=== PATIENT | male | born 1980 | race Caucasian/White ===

== ENCOUNTER 2018-02-11 23:25 | Emergency (ER) | payer MEDICAID ==
--- NOTE | 2018-02-12 00:49 | ED Physician Documentation ---
History of Present Illness - Stated complaint Stated Complaint: R LEG PX - Chief complaint Chief Complaint: Ext Problem - Additonal information Additional information: hx from pt 37 m RLE pain and swelling primarily medial posterior knee and calf a bit to lateral thigh started after twisted his knee no CP or SOA no trauma no redness or fever Review of Systems Constitutional: denies: Fever Cardiac: denies: Chest pain / pressure Respiratory: denies: Dyspnea Musculoskeletal: reports: Extremity pain, Extremity swelling Endocrine: denies: Easy bruising / bleeding Immunocompromised: denies: Immunocompromised PD PAST MEDICAL HISTORY - Past Medical History : Kidney stones - Past Surgical History Past Surgical History: No - Present Medications Home Medications: Ambulatory Orders Medication Instructions Recorded Confirmed Ibuprofen [Motrin] 400 mg PO Q6H PRN #20 tablet 02/12/18 - Allergies Allergies/Adverse Reactions: Allergies Allergy/AdvReac Type Severity Reaction Status Date / Time Penicillins Allergy Anaphylaxis Verified 02/11/18 23:33 - Social History Does the pt smoke?: No Smoking Status: Never smoker Does the pt drink ETOH?: No Does the pt have substance abuse?: No - Immunizations Immunizations are current?: Yes - POLST Patient has POLST: No PD ED PE NORMAL - Vitals Vital signs reviewed: Yes - General General: Alert and oriented X 3 - Cardiac Cardiac: RRR - Respiratory Respiratory: No respiratory distress, Clear bilaterally - Abdomen Abdomen: Non tender - Extremities Extremities: Other (mild edema, quite TTP medial posterior knee and upper medial calf, MSV intact, no redness or warmth., neg SLR, no clonus, knee s effusion laxity deformity) Results - Vitals Vitals: Vital Signs - 24 hr 02/11/18 02/12/18 02/12/18 23:25 02:28 03:20 Heart Rate 99 86 85 Respiratory 18 20 16 Rate Blood Pressure 136/84 H 134/79 H 130/96 H O2 Saturation 97 94 96 Oxygen O2 Source Room air - Rads (name of study) duplex Radiology: See rad report (no DVT) Departure - Departure Disposition: 01 Home, Self Care Clinical Impression: Pain in extremity Qualifiers: Extremity pain location: lower extremity Laterality: right Qualified Code(s): M79.604 - Pain in right leg Condition: Good Prescriptions: Ibuprofen [Motrin] 400 mg PO Q6H PRN #20 tablet PRN Reason: Pain Comments: The history does not suggest a bone injury The exam does not suggest and infection And the ultrasound does not show a blood clot. I think it is safe for you to go home for now. Recommend elevating your leg and taking motrin to decrease pain and swelling Follow up with your PMD for a recheck within a week. Return if worse Discharge Date/Time: 02/12/18 03:25
[2018-02-12] MEDS: IBUPROFEN 400 MG TABLET PO STA (01:07)
--- NOTE | 2018-02-12 02:53 | Ultrasound Report ---
Reason: rle pain and swelling Procedure Date: 02/12/2018 Accession Number: [id number] / [id number] Procedure: US - Duplex Ext Veins Right CPT Code: FULL RESULT: EXAM: RIGHT LOWER EXTREMITY VENOUS ULTRASOUND EXAM DATE: 02/12/2018 02:23 AM. CLINICAL HISTORY: Large lower extremity pain and swelling. COMPARISON: None. TECHNIQUE: Real-time sonographic vascular imaging was performed by the science editor through the lower extremity utilizing both color-flow and Doppler spectral analysis. Multiple inside outside sales representative static images were saved for review. FINDINGS: Common Femoral Vein (CFV): No evidence of thrombus. CFV-GSV Junction: No evidence of thrombus. Profunda Femoral Vein (PFV): No evidence of thrombus. Femoral Vein (FV) Prox: No evidence of thrombus. Femoral Vein (FV) Mid: No evidence of thrombus. Femoral Vein (FV) Dist: No evidence of thrombus. Popliteal Vein: No evidence of thrombus. Calf Veins: Suboptimally visualized. Other: Edema noted at the calf level. IMPRESSION: No evidence for deep venous thrombosis. RADIA
[2018-02-12 03:25] VITALS: BP 130/96
== END 2018-02-12 03:25 | disposition home or self-care (01) ==
LOC: ED 23:25
DX: M79.662 Pain in left lower leg (principal)
CPT/HCPCS: 99282; 99283

== ENCOUNTER 2018-03-24 22:42 | Inpatient (IN) | payer MEDICAID ==
[2018-03-24 23:18] LABS: BASOPHILS # (AUTO) 0.1 10^3/uL (0.0-0.1); BASOPHILS % (AUTO) 0.6 %; EOSINOPHILS # (AUTO) 0.3 10^3/uL (0.0-0.7); EOSINOPHILS % (AUTO) 1.8 %; HGB - HEMOGLOBIN 17.4 g/dL (14.0-18.0); LYMPHOCYTES # (AUTO) 1.3 10^3/uL (1.5-3.5); LYMPHOCYTES % (AUTO) 8.4 %; MEAN CORPUSCULAR HGB CONC 33.2 g/dL (32.0-36.0); MEAN CORPUSCULAR VOLUME 87.4 fL (80.0-94.0); MONOCYTES # (AUTO) 1.3 10^3/uL (0.0-1.0); MONOCYTES % (AUTO) 8.5 %; NEUTROPHILS # (AUTO) 12.6 10^3/uL (1.5-6.6); NEUTROPHILS % (AUTO) 80.7 %; PLT - PLATELET COUNT 327 10^3/uL (130-450); RED BLOOD COUNT 6.01 10^6/uL (4.70-6.10); RED CELL DISTRIBUTION WIDTH 13.7 % (12.0-15.0); WHITE BLOOD COUNT 15.7 x10^3/uL (4.8-10.8)
[2018-03-24 23:19] LABS: BILIRUBIN,URINE NEGATIVE (NEGATIVE); GLUCOSE, URINE (UA) NEGATIVE (NEGATIVE); KETONES,URINE (UA) NEGATIVE (NEGATIVE); LEUKOCYTE ESTERASE, URINE NEGATIVE (NEGATIVE); NITRITE,URINE NEGATIVE (NEGATIVE); OCCULT BLOOD,URINE NEGATIVE (NEGATIVE); PH,URINE 5.5 PH (5.0-7.5); PROTEIN,URINE 100 mg/dL (NEGATIVE); UROBILINOGEN,URINE 0.2 (NORMAL) E.U./dL (NORMAL)
[2018-03-24 23:20] LABS: CLARITY,URINE CLEAR (CLEAR)
--- NOTE | 2018-03-24 23:28 | ED Physician Documentation ---
PD HPI NVD - Stated complaint Stated Complaint: N/V/D/ABD PX - Chief complaint Chief Complaint: Abd Pain - History obtained from History obtained from: Patient - History of Present Illness Timing - onset: How many hours ago (12), Today (10 am) Timing - duration: Hours (12) Timing - details: Abrupt onset, Still present, Waxing and waning Associated symptoms: Abdominal pain (general cramping), Loss of appetite, Other (repetitive vomiting and diarrhea through the day. Persistent nausea.). No: Fever Contributing factors: No: Sick contact, Bad food, Recent antibiotics Similar symptoms before: Has not had sx before Review of Systems Constitutional: reports: Myalgias. denies: Fever, Chills Nose: denies: Rhinorrhea / runny nose, Congestion Throat: denies: Sore throat Cardiac: denies: Chest pain / pressure Respiratory: denies: Dyspnea, Cough GI: reports: Abdominal Swelling (this evening), Nausea, Vomiting, Diarrhea. denies: Hematemesis, Bloody / black stool : denies: Dysuria, Hematuria Skin: denies: Rash, Lesions Musculoskeletal: denies: Back pain Neurologic: reports: Generalized weakness. denies: Near syncope, Altered mental status, Headache Immunocompromised: denies: Immunocompromised PD PAST MEDICAL HISTORY - Past Medical History Past Medical History: Yes Cardiovascular: None Respiratory: None Neuro: None Endocrine/Autoimmune: None : Kidney stones - Past Surgical History Past Surgical History: No - Present Medications Home Medications: Ambulatory Orders Medication Instructions Recorded Confirmed No Known Home Medications 03/24/18 03/24/18 - Allergies Allergies/Adverse Reactions: Allergies Allergy/AdvReac Type Severity Reaction Status Date / Time Penicillins Allergy Anaphylaxis Verified 03/24/18 22:50 - Social History Does the pt smoke?: No Smoking Status: Never smoker Does the pt drink ETOH?: No Does the pt have substance abuse?: No - Immunizations Immunizations are current?: Yes - POLST Patient has POLST: No PD ED PE NORMAL - Vitals Vital signs reviewed: Yes - General General: Alert and oriented X 3 - HEENT HEENT: Pharynx benign. No: Moist mucous membranes - Neck Neck: Supple, no meningeal sign - Cardiac Cardiac: No murmur. No: RRR (tachy but regular) - Respiratory Respiratory: Clear bilaterally - Abdomen Abdomen: Soft, No organomegaly, Other (distended generally without percussion tenderness. General mild tenderness without guarding. Bowel sounds diminished to absent. ) - Male Male : Deferred - Rectal Rectal: Deferred - Back Back: No CVA TTP - Derm Derm: Normal color, Warm and dry - Extremities Extremities: No deformity, Normal ROM s pain, No edema - Neuro Neuro: Alert and oriented X 3, No motor deficit, Normal speech - Psych Psych: Normal mood, Normal affect Results - Vitals Vitals: Vital Signs - 24 hr 03/24/18 22:45 Temperature 37.0 C Heart Rate 132 H Respiratory 24 Rate Blood Pressure 138/95 H O2 Saturation 96 Oxygen O2 Source Room air - Labs Labs: Laboratory Tests 03/24/18 03/24/18 03/24/18 22:58 23:08 23:08 WBC 15.7 H RBC 6.01 Hgb 17.4 Hct 52.5 H MCV 87.4 MCH 29.0 MCHC 33.2 RDW 13.7 Plt Count 327 MPV 9.0 Neut # (Auto) 12.6 H Lymph # (Auto) 1.3 L [place] # (Auto) 1.3 H Eos # (Auto) 0.3 Baso # (Auto) 0.1 Absolute Nucleated RBC 0.05 Nucleated RBC % 0.3 Sodium 135 Potassium 3.6 Chloride 97 L Carbon Dioxide 25 Anion Gap 13.0 BUN 17 Creatinine 0.9 Estimated GFR (MDRD) 96 Glucose 174 H Calcium 9.5 Total Bilirubin 1.0 AST 49 H ALT 67 H Alkaline Phosphatase 64 Total Protein 8.6 H Albumin 4.8 Globulin 3.8 Albumin/Globulin Ratio 1.3 Lipase 24 Urine Color YELLOW Urine Clarity CLEAR Urine pH 5.5 Ur Specific [place] >=1.030 H Urine Protein 100 H Urine Glucose (UA) NEGATIVE Urine Ketones NEGATIVE Urine Occult Blood NEGATIVE Urine Nitrite NEGATIVE Urine Bilirubin NEGATIVE Urine Urobilinogen 0.2 (NORMAL) Ur Leukocyte Esterase NEGATIVE Urine RBC 0-5 Urine WBC 4-5 Ur Squamous Epith Cells NONE SEEN Urine Bacteria None Seen Ur Microscopic Review INDICATED Urine Culture Comments NOT INDICATED - Rads (name of study) abd CT Radiology: Prelim report reviewed (large left proximal urteral stone with hydronephrosis. dilated bowel with obstruction pattern. ) PD MEDICAL DECISION MAKING - ED course Complexity details: reviewed results (He does have an elevated white count. His CT scan shows a proximal left ureteral stone that is quite large with some hydronephrosis. We will try to find prior imaging for comparison. There is a reading of cysts dilated loops of bowel with bowel obstruction pattern. Clinically however the patient has had vomiting and diarrhea with distention and decreased bowel sounds and I think it acts more like an ileus.), re-evaluated patient (less nauseated but still distended. nauseated. Bowel sounds decreased. ), considered differential, d/w patient, d/w quality improvement consultant (I talked with our hospitalist with the primary symptoms being that of nausea vomiting and diarrhea with the distention. However there was concern for the hydronephrosis and stone. I was able to talk with surgery down in [facility] where the patient has had prior urology procedures. They compared to a CT report from 11/29/2015 that also showed the large proximal ureteral stone with some hydronephrosis of the kidney and therefore seems to be a chronic condition. This would negate the need for urgent urology evaluation and we should be able to care for the patient here at our facility.) Departure - Departure Disposition: ED Place in Observation Clinical Impression: Nausea vomiting and diarrhea, Ileus, unspecified, Abdominal distension, Kidney stone on left side Condition: Stable Record reviewed to determine appropriate education?: Yes
[2018-03-24 23:31] LABS: BACTERIA,URINE None Seen /HPF (None Seen); RBC,URINE 0-5 /HPF (0-5); SQUAMOUS EPITHELIAL CELL,UR NONE SEEN (<= Few)
[2018-03-24 23:31] LABS: ALBUMIN 4.8 g/dL (3.2-5.5); ALBUMIN/GLOBULIN RATIO 1.3 (1.0-2.2); CALCIUM 9.5 mg/dL (8.5-10.3); CREATININE 0.9 mg/dL (0.6-1.2); TOTAL PROTEIN 8.6 g/dL (6.7-8.2)
[2018-03-24] MEDS ORDERED: ONDANSETRON 4 MG/2 ML VIAL IVP STA (23:36)
[2018-03-24] MEDS ORDERED: SODIUM CHLORIDE 0.9% 1,000 ML IV ONE ×2 (23:36→23:37)
[2018-03-24] MEDS ORDERED: DIPHENOX/ATROPINE 2.5/0.025 MG TABLET PO STA (23:37)
[2018-03-24] MEDS ORDERED: KETOROLAC 30 MG/ML VIAL IVP STA (23:37)
[2018-03-25] MEDS ORDERED: PROMETHAZINE INJ 12.5 MG in SODIUM CHLORIDE 0.9% 50 ML IV STA (00:53)
[2018-03-25] MEDS ORDERED: SODIUM CHLORIDE 0.9% 1,000 ML IV ONE (01:18)
[2018-03-25] MEDS ORDERED: MORPHINE 2 MG/ML CARPUJECT IVP STA ×2 (01:19→04:39)
[2018-03-25] MEDS ORDERED: MORPHINE 2 MG/ML CARPUJECT ONE (01:30)
[2018-03-25] MEDS ORDERED: IOVERSOL 320 100 ML VIAL IVP ONE ×2 (01:50→02:17)
--- NOTE | 2018-03-25 02:45 | CT Report ---
Reason: abd pain, vomiting/diarrhea Procedure Date: 03/25/2018 Accession Number: [id number] / [id number] Procedure: CT - Abdomen/Pelvis W/ CPT Code: FULL RESULT: EXAM: CT ABDOMEN AND PELVIS EXAM DATE: 03/25/2018 02:16 AM. CLINICAL HISTORY: Abdominal pain, vomiting, diarrhea. COMPARISONS: None. TECHNIQUE: Routine helical CT imaging was performed through the abdomen and pelvis. IV contrast: 100 mL Optiray 320. Enteric contrast: No. Reconstructions: Coronal and sagittal. In accordance with CT protocol optimization, one or more of the following dose reduction techniques were utilized for this exam: automated exposure control, adjustment of mA and/or KV based on patient size, or use of iterative reconstructive technique. FINDINGS: ABDOMEN: Liver: Severe hepatic steatosis noted. Stomach/Distal Esophagus: No significant abnormality. Gallbladder: Sludge and/or stones are suspected. Bile Ducts: No significant abnormality. Pancreas: No significant abnormality. Spleen: No significant abnormality. Kidneys: Severe left-sided hydroureteronephrosis noted, due to a proximal left ureteral stone measuring 1.4 x 2.0 x 1.8 cm (image 55 series 3). Stone measures 953 HU in density. There is a posterolaterally located left mid to upper kidney stone measuring 6 mm. Punctate right lower kidney stone. Cluster of stones within a medially located right mid to upper lung calyx noted. These measure up to 6 mm as well. No right-sided hydroureteronephrosis. Multiple renal parenchymal low-density lesions are noted, with appearance suggestive of cysts. Some of the smaller lesions are difficult to fully characterize on this exam. Adrenals: No significant abnormality. Bowel: Multiple fluid filled moderately dilated proximal small bowel loops are noted, with a transition in the right upper quadrant, probably within the mid ileum (image 49 series 3). Maximal small bowel distention is that of the proximal jejunum, measuring up to 5.4 cm (image 49 series 3). Appendix: Small caliber appendix, normal. Lymph Nodes: No pathologically enlarged nodes. Vasculature: Normal caliber aorta. Fluid: No significant free fluid. Abdominal Wall: No significant abnormality. Other: No significant abnormality. PELVIS: Prostate and Seminal Vesicles: No significant abnormality. Bladder: No significant abnormality. Lymph Nodes: No pathologically enlarged nodes. Fluid: No significant free fluid. Other: None. BONES: No suspicious bony lesions. LOWER CHEST: No significant consolidation or effusion. Multiple borderline as well as mild enlarged periaortic posterior mediastinal lymph nodes are noted. These are nonspecific and difficult to fully characterize. IMPRESSION: 1. Findings of small bowel obstruction with a transition in the right upper quadrant, probably within the mid ileum. 2. Maximal small bowel diameter measures up to 5.4 mm. No definite evidence of intra-abdominal free gas seen at this time. 3. Bilateral intrarenal kidney stones measuring up to 6 mm (2 on the right and one on the left). There is severe left hydroureteronephrosis due to an obstructing large left proximal ureteral stone which measures 1.4 x 2.0 x 1.8 cm. The stone is 953 HU in density. 4. Suspect gallbladder sludge and/or stones. RADIA
[2018-03-25] MEDS ORDERED: PROMETHAZINE 25 MG/1 ML VIAL IM PRN (05:05)
[2018-03-25] MEDS ORDERED: PROCHLORPERAZINE 10 MG/2 ML VIAL IVP PRN (05:05)
[2018-03-25] MEDS ORDERED: ONDANSETRON 4 MG/2 ML VIAL IVP PRN (05:05)
[2018-03-25] MEDS ORDERED: ACETAMINOPHEN 325 MG TABLET PO PRN (05:05)
[2018-03-25] MEDS: SODIUM CHLORIDE FLUSH 0.9% 10 ML SYRINGE IVP PRN (06:35)
[2018-03-25] MEDS: SODIUM CHLORIDE 0.9% 1,000 ML IV SCH ×2 (06:35→15:48)
[2018-03-25] MEDS: PANTOPRAZOLE 40 MG TABLET PO SCH ×2 (06:36→17:14)
--- NOTE | 2018-03-25 06:57 | HISTORY & PHYSICAL EXAMINATION ---
Chief Complaint - Chief Complaint Chief Complaint: Abdominal pain with nausea and vomiting and diarrhea History of Present Illness - Admitted From Admitted From:: Emergency apartment - History Obtained From Records Reviewed: Emergency department records as well as 2016 CT scan report from [facility] History obtained from: Patient, Dr. Alexandre, medical records Exam Limitations: None - History of Present Illness HPI Comment/Other: Patient is a 37-year old Male With a past medical history significant only for kidney stones as far as the patient knows, who presents to the emergency department with upset stomach, nausea, vomiting, diarrhea, and abdominal pain that started when he was woken up for [place] at approximately 10 AM on March 24. Patient states that he immediately felt nauseous, went to the bathroom and had 2 large episodes of emesis followed by several episodes of diarrhea and further episodes of emesis throughout the day. Overall he estimates he had about 5 episodes of emesis throughout the day including after presenting to the ED when he had to, as well as about 5-8 episodes of watery diarrhea. He does not describe any blood in either emesis or stool, and describes green colored stool with some yellow clear emesis products. Patient denies any previous antecedent syndrome with fever, nausea, vomiting, chills, change in diet, recent travel, or known sick contacts. He does however admit that he has had multiple family members over for the holiday and does not know if any of them had been sick without his being aware. Patient presented to the emergency room for evaluation and in the ED received 1 dose of Zofran and 1 dose of Phenergan and after repeated attempts to take p.o. fluids, he continued to complain of abdominal discomfort and bloating with even water so the ED physician ordered a CT scan of his abdomen and pelvis. The CT scan was read as a possible small bowel obstruction though Dr. Alexandre felt this was a presentation more consistent with ileus, and it also showed an incidental left kidney stone in the ureter. This is fairly large and measures 2 cm in the largest diameter causing severe hydronephrosis. Initially because of this finding after I was called to admit the patient, I requested input from urology as this might be something that requires surgical intervention during this hospital stay but since it has been chronic I thought this could be confirmed with previous imaging studies. Dr. Alexandre was able to obtain a previous CT scan from 2016 showing the same stone and did talk to the urologist on-call at the [facility] who had reviewed the images stating that this is chronic and does not need to be addressed during this hospital stay as long as he is not symptomatic with flank pain, or other symptoms of urological concern. History - Past Medical History Cardiovascular: reports: None Respiratory: reports: None Neuro: reports: None Endocrine/Autoimmune: reports: None GI: reports: None : reports: None, Kidney stones HEENT: reports: None Psych: reports: None Musculoskeletal: reports: None Derm: reports: None MRSA Hx?: No - POLST Patient has POLST: No Meds/Allgy - Home Medications Home Medications: Ambulatory Orders Medication Instructions Recorded Confirmed No Known Home Medications 03/24/18 03/24/18 - Allergies Allergies/Adverse Reactions: Allergies Allergy/AdvReac Type Severity Reaction Status Date / Time Penicillins Allergy Anaphylaxis Verified 03/24/18 22:50 Review of Systems - Constitutional Constitutional: reports: Poor appetite. denies: Fever, Chills, Weakness - Gastrointestinal Gastrointestinal: reports: Abdominal pain, Abdominal distention, Diarrhea, Change in bowel habits, Nausea, Vomiting, [place] blood emesis. denies: Constipation, Rectal bleeding, Black stools, Bloody stools, Bile emesis, Coffee grounds emesis, Reflux/heartburn, Bloating - Genitourinary Genitourinary: denies: Dysuria, Frequency, Urgency, Hematuria, Incontinence - All Other Systems All Other Systems: reports: Reviewed and negative Prior Level of Functionality: Independent Exam - Vital Signs Reviewed Vital Signs: Yes Vital Signs: Vital Signs x48h Temp Pulse Pulse Resp BP BP Pulse Ox 03/25/18 06:35 36.8 C 105 H 20 132/90 H 03/25/18 04:48 96 148/85 H 88 L - Physical Exam General Appearance: positive: No acute distress Eyes Bilateral: positive: Normal inspection ENT: positive: ENT inspection nml Neck: positive: Nml inspection Respiratory: positive: Chest non-tender, No respiratory distress, Breath sounds nml Cardiovascular: positive: Regular rate & rhythm, No murmur, No gallop Peripheral Pulses: positive: 2+ Abdomen: positive: No organomegaly, Tenderness, Abnml bowel sounds (Hypoactive bowel sounds, tenderness most prominent at the left upper quadrant and epiga stric region. Distended.). negative: Guarding, Rebound, Hepatomegaly, Splenomegaly, Mass Skin: positive: Color nml Extremities: positive: Non-tender, Nml appearance, No pedal edema Neurologic/Psychiatric: positive: Oriented x3, CN's nml (2-12), Motor nml, Sensation nml, Mood/affect nml Conclusion/Plan - Problem List (1) Ileus, unspecified Conclusion/Plan: It is unclear if this is true small bowel obstruction given the fluid levels seen with dilated bowel loops versus ileus. In either case, management will start the same with patient being kept on clear liquids as long as he can tolerate this otherwise will be reversed to n.p.o. If bowel sounds improve and patient is able to tolerate liquids, could potentially consider advancing the diet slowly otherwise may need to have a nasogastric suction and possible surgical consultation if there is no improvement. In the meantime, will order and follow-up results on stool studies given the diarrhea as this may be presenting as part of a infectious diarrhea or viral gastroenteritis.Also, antiemetics will be provided and patient will be given IV fluids. Also, the patient states he does not have any known medical history but he had a glucose of 174 presumably after not eating for several hours so I will add labs to screen the patient for diabetes as this could certainly be the underlying etiology for ileus. (2) Hydronephrosis due to obstruction of ureter Conclusion/Plan: This is apparently a chronic problem as Dr. Livingston of the [facility] had been contacted by the ED physician who reviewed the CT scan performed in our facility Earlier today as well as the CT scan from previous admission in 2016. There is no significant change in the stone or hydronephrosis and Dr. Livingston felt that this does not need to be addressed urgently but should follow-up with urology outpatient. (3) Abdominal distension Conclusion/Plan: Patient does have steatosis on CT scan notes unlikely if this is related. Will follow-up labs and clinical course with plan as above. (4) Kidney stone on left side Conclusion/Plan: As stated above, this is a previously known kidney stone that is not presenting with acute symptoms despite the impressive amount of hydronephrosis on the CT scan. There is certainly possible with his nausea vomiting and a whether this is related, without flank pain it seems less likely so we will continue monitoring for this and recommend outpatient further workup (5) Nausea vomiting and diarrhea Conclusion/Plan: As above, IV fluids, clear liquids versus n.p.o., pain control, possible surgical consult and nasogastric tube with suction if symptoms worsen or fail to improve. (6) Obesity Conclusion/Plan: We will screen the patient for diabetes Qualifiers: Obesity type: due to excess calories Obesity classification: adult class 3 (BMI >= 40) - Lab Results Lab results reviewed: Yes Darius Bones: 03/24/18 23:08 03/24/18 23:08 - Diagnostic Imaging Results Diagnostic Imaging Results: positive: Final report reviewed, Read independently Core Measures - Anticipated LOS I expect patient to be DC'd or transferred within 96 hours.: Yes - DVT/VTE - Prophylaxis VTE/DVT Device ordered at admit?: Yes
[2018-03-25 08:19] LABS: CHOL/HDL RATIO 3.5 (<5.0); CHOLESTEROL 159 mg/dL; HDL CHOLESTEROL 45 mg/dL; LDL CHOLESTEROL,CALCULATED 97 mg/dL; LDL/HDL RATIO 2.2 (<3.6); VLDL CHOLESTEROL 17 mg/dL
[2018-03-25 08:21] LABS: HB2 TOTAL 17.6 g/dL; HEMOGLOBIN A1C 0.9 g/dL; HEMOGLOBIN A1C % 6.8 % (4.6-6.2)
--- NOTE | 2018-03-25 08:47 | XRAY Report ---
Reason: sob Procedure Date: 03/25/2018 Accession Number: [id number] / [id number] Procedure: XR - Chest 1 View X-Ray CPT Code: 24077 FULL RESULT: EXAM: CHEST RADIOGRAPHY EXAM DATE: 03/25/2018 08:36 AM. CLINICAL HISTORY: Shortness of breath. COMPARISON: None. TECHNIQUE: 1 view. FINDINGS: Lungs/Pleura: No focal opacities evident. No pleural effusion. No pneumothorax. Subjectively, lung volumes are relatively low. Mediastinum: Within exam limitations, the cardiomediastinal contour is normal. Other: None. IMPRESSION: Relatively low lung volumes in otherwise unremarkable radiograph. RADIA
[2018-03-25 08:48] LABS: BASOPHILS % (AUTO) 0.3 %; EOSINOPHILS % (AUTO) 0.3 %; HGB - HEMOGLOBIN 15.9 g/dL (14.0-18.0); LYMPHOCYTES % (AUTO) 6.6 %; MEAN CORPUSCULAR HEMOGLOBIN 29.1 pg (27.0-31.0); MEAN CORPUSCULAR HGB CONC 33.2 g/dL (32.0-36.0); MEAN CORPUSCULAR VOLUME 87.4 fL (80.0-94.0); MEAN PLATELET VOLUME 9.4 fL (7.4-11.4); MONOCYTES # (AUTO) 1.3 10^3/uL (0.0-1.0); MONOCYTES % (AUTO) 8.3 %; NEUTROPHILS # (AUTO) 12.9 10^3/uL (1.5-6.6); NEUTROPHILS % (AUTO) 84.5 %; PLT - PLATELET COUNT 305 10^3/uL (130-450); RED BLOOD COUNT 5.46 10^6/uL (4.70-6.10); RED CELL DISTRIBUTION WIDTH 13.9 % (12.0-15.0); WHITE BLOOD COUNT 15.2 x10^3/uL (4.8-10.8)
[2018-03-25 08:57] LABS: ALBUMIN 3.8 g/dL (3.2-5.5); ALKALINE PHOSPHATASE 54 IU/L (42-121); ALT ALANINE AMINOTRANSFERASE 57 IU/L (10-60); AST ASPARTATE AMINOTRANSFERASE 35 IU/L (10-42); BILIRUBIN,TOTAL 0.6 mg/dL (0.2-1.0); BUN - BLOOD UREA NITROGEN 19 mg/dL (6-20); CALCIUM 8.8 mg/dL (8.5-10.3); CARBON DIOXIDE - CO2 25 mmol/L (21-32); CHLORIDE 101 mmol/L (101-111); CREATININE 0.8 mg/dL (0.6-1.2); GFR - MDRD 110 (>89); GLUCOSE 185 mg/dL (70-100); MAGNESIUM 1.7 mg/dL (1.7-2.8); SODIUM 137 mmol/L (135-145); TOTAL PROTEIN 7.5 g/dL (6.7-8.2)
[2018-03-25] MEDS: POLYETHYLENE GLYCOL 3350 17 GM PACKET PO SCH (09:23)
[2018-03-25] MEDS: SODIUM CHLORIDE FLUSH 0.9% 10 ML SYRINGE IVP SCH ×2 (09:24→15:49)
--- NOTE | 2018-03-25 10:36 | PROVIDER PROGRESS NOTE ---
Subjective - Prog Note Date Prog Note Date: 03/25/18 - Subjective Pt reports feeling: No change Subjective: pt still complain of N/V, also he has diarrhea today morning. pt report he had diarrhea for many times recently. His sample is sent for C.Diff. He denies chest pain, fever, chill, SOB Current Medications - Current Medications Current Medications: Active Medications Acetaminophen (Tylenol) 650 mg PO Q4HR PRN PRN Reason: Pain 1 to 4 Sodium Chloride (Normal Saline 0.9%) 1,000 mls @ 100 mls/hr IV .Q10H [facility] Last Admin: 03/25/18 06:35 Dose: 100 mls/hr Morphine Sulfate (Morphine (Carpuject)) 2 mg IVP Q2HR PRN PRN Reason: Pain 8 to 10 Ondansetron HCl (Zofran Inj) 4 mg IVP Q6HR PRN PRN Reason: Nausea / Vomiting Pantoprazole Sodium (Protonix) 40 mg PO BIDAC [facility] Last Admin: 03/25/18 06:36 Dose: 40 mg Polyethylene Glycol (Miralax) 17 gm PO DAILY [facility] Last Admin: 03/25/18 09:23 Dose: Not Given Prochlorperazine Edisylate (Compazine Inj) 10 mg IVP Q6HR PRN PRN Reason: Nausea / Vomiting Promethazine HCl (Phenergan Inj) 25 mg IM Q6HR PRN PRN Reason: Nausea / Vomiting Simethicone (Mylicon) 80 mg PO 0900,1300,1800,2100 [facility] Sodium Chloride (Normal Saline Flush 0.9%) 10 ml IVP PRN PRN PRN Reason: NEEDED PER PROVIDER ORDERS Last Admin: 03/25/18 06:35 Dose: 10 ml Sodium Chloride (Normal Saline Flush 0.9%) 10 ml IVP 0100,0900,1700 [facility] Last Admin: 03/25/18 09:24 Dose: Not Given No Known Home Medications 03/24/18 Objective - Vital Signs/Intake & Output Reviewed Vital Signs: Yes Vital Signs: Vital Signs x48h Temp Pulse Pulse Resp BP BP Pulse Ox 03/25/18 07:34 36.7 C 95 18 125/79 92 03/25/18 06:35 36.8 C 105 H 20 132/90 H 03/25/18 04:48 96 148/85 H 88 L Intake & Output: Intake & Output 03/22/18 03/23/18 03/24/18 03/25/18 23:59 23:59 23:59 23:59 Intake Total 3050.5 Output Total 300 Balance 2750.5 - Objective General Appearance: positive: No acute distress, Alert. negative: Lethargic Eyes Bilateral: positive: Normal inspection, PERRL. negative: No lid inflammation, Conjunctivae nml ENT: positive: ENT inspection nml, Pharynx nml, No signs of dehydration. negative: Purulent nasal drainage, Pharyngeal erythema, Oral lesions, Dry mucous membranes Neck: positive: Nml inspection, Thyroid nml, No JVD, Trachea midline. negative: Thyromegaly, Lymphadenopathy (R), Lymphadenopathy (L), Stiff neck, Swelling/bruising, Tracheal deviation Respiratory: positive: Chest non-tender, No respiratory distress, Breath sounds nml. negative: Wheezes, Rales, Rhonchi Cardiovascular: positive: Regular rate & rhythm, No murmur, No gallop, Irregularly irregular. negative: Extrasystoles, Tachycardia, Bradycardia, JVD present, Systolic murmur, Diastolic murmur Peripheral Pulses: 2+ Radial (R), 2+ Radial (L), 2+ Dorsalis pedis (R), 2+ Dorsalis pedis (L) Abdomen: positive: Non-tender, No organomegaly, Nml bowel sounds, No distention. negative: Tenderness, Guarding, Rebound Back: positive: Nml inspection. negative: CVA tenderness (R), CVA tenderness (L) Skin: positive: Color nml, No rash, Warm, Dry. negative: Cyanosis, Diaphoresis, Pallor Extremities: positive: Non-tender, Full ROM, Nml appearance. negative: Calf tenderness, Joint swelling, Pk's sign/cords Neurologic/Psychiatric: positive: Oriented x3, Motor nml, Sensation nml, Mood/affect nml. negative: Weakness, Sensory loss, Facial droop, Slurred/abnml speech, Depressed mood/affect - Lab Results Fish Bones: 03/25/18 07:05 03/25/18 07:05 Other Labs: Lab Results x24hrs 03/25/18 03/25/18 03/25/18 Range/Units 07:05 07:05 07:05 WBC 15.2 H (4.8-10.8) x10^3/uL RBC 5.46 (4.70-6.10) 10^6/uL Hgb 15.9 (14.0-18.0) g/dL Hct 47.7 (42.0-52.0) % MCV 87.4 (80.0-94.0) fL MCH 29.1 (27.0-31.0) pg MCHC 33.2 (32.0-36.0) g/dL RDW 13.9 (12.0-15.0) % Plt Count 305 (130-450) 10^3/uL MPV 9.4 (7.4-11.4) fL Neut # (Auto) 12.9 H (1.5-6.6) 10^3/uL Lymph # (Auto) 1.0 L (1.5-3.5) 10^3/uL [place] # (Auto) 1.3 H (0.0-1.0) 10^3/uL Eos # (Auto) 0.0 (0.0-0.7) 10^3/uL Baso # (Auto) 0.0 (0.0-0.1) 10^3/uL Absolute Nucleated RBC 0.01 x10^3/uL Nucleated RBC % 0.1 /100WBC Sodium 137 (135-145) mmol/L Potassium 3.8 (3.5-5.0) mmol/L Chloride 101 (101-111) mmol/L Carbon Dioxide 25 (21-32) mmol/L Anion Gap 11.0 (6-13) BUN 19 (6-20) mg/dL Creatinine 0.8 (0.6-1.2) mg/dL Estimated GFR (MDRD) 110 (>89) Glucose 185 H (70-100) mg/dL Glycated Hemoglobin 6.8 H (4.6-6.2) % Estim Average Glucose 148 H (70-100) Calcium 8.8 (8.5-10.3) mg/dL Magnesium 1.7 (1.7-2.8) mg/dL Total Bilirubin 0.6 (0.2-1.0) mg/dL AST 35 (10-42) IU/L ALT 57 (10-60) IU/L Alkaline Phosphatase 54 (42-121) IU/L Total Protein 7.5 (6.7-8.2) g/dL Albumin 3.8 (3.2-5.5) g/dL Globulin 3.7 (2.1-4.2) g/dL Albumin/Globulin Ratio 1.0 (1.0-2.2) Triglycerides 85 ( - 149) mg/dL Cholesterol 159 ( - 199) mg/dL LDL Cholesterol, Calc 97 ( - 129) mg/dL VLDL Cholesterol 17 mg/dL HDL Cholesterol 45 L (60 - ) mg/dL LDL/HDL Ratio 2.2 (<3.6) Cholesterol/HDL Ratio 3.5 (<5.0) Lipase (22-51) U/L Urine Color Urine Clarity (CLEAR) Urine pH (5.0-7.5) PH Ur Specific [place] (1.002-1.030) Urine Protein (NEGATIVE) mg/dL Urine Glucose (UA) (NEGATIVE) mg/dL Urine Ketones (NEGATIVE) mg/dL Urine Occult Blood (NEGATIVE) Urine Nitrite (NEGATIVE) Urine Bilirubin (NEGATIVE) Urine Urobilinogen (NORMAL) E.U./dL Ur Leukocyte Esterase (NEGATIVE) Urine RBC (0-5) /HPF Urine WBC (0-3) /HPF Ur Squamous Epith Cells (<= Few) Urine Bacteria (None Seen) /HPF Ur Microscopic Review Urine Culture Comments 03/24/18 03/24/18 03/24/18 Range/Units 23:08 23:08 22:58 WBC 15.7 H (4.8-10.8) x10^3/uL RBC 6.01 (4.70-6.10) 10^6/uL Hgb 17.4 (14.0-18.0) g/dL Hct 52.5 H (42.0-52.0) % MCV 87.4 (80.0-94.0) fL MCH 29.0 (27.0-31.0) pg MCHC 33.2 (32.0-36.0) g/dL RDW 13.7 (12.0-15.0) % Plt Count 327 (130-450) 10^3/uL MPV 9.0 (7.4-11.4) fL Neut # (Auto) 12.6 H (1.5-6.6) 10^3/uL Lymph # (Auto) 1.3 L (1.5-3.5) 10^3/uL [place] # (Auto) 1.3 H (0.0-1.0) 10^3/uL Eos # (Auto) 0.3 (0.0-0.7) 10^3/uL Baso # (Auto) 0.1 (0.0-0.1) 10^3/uL Absolute Nucleated RBC 0.05 x10^3/uL Nucleated RBC % 0.3 /100WBC Sodium 135 (135-145) mmol/L Potassium 3.6 (3.5-5.0) mmol/L Chloride 97 L (101-111) mmol/L Carbon Dioxide 25 (21-32) mmol/L Anion Gap 13.0 (6-13) BUN 17 (6-20) mg/dL Creatinine 0.9 (0.6-1.2) mg/dL Estimated GFR (MDRD) 96 (>89) Glucose 174 H (70-100) mg/dL Glycated Hemoglobin (4.6-6.2) % Estim Average Glucose (70-100) Calcium 9.5 (8.5-10.3) mg/dL Magnesium (1.7-2.8) mg/dL Total Bilirubin 1.0 (0.2-1.0) mg/dL AST 49 H (10-42) IU/L ALT 67 H (10-60) IU/L Alkaline Phosphatase 64 (42-121) IU/L Total Protein 8.6 H (6.7-8.2) g/dL Albumin 4.8 (3.2-5.5) g/dL Globulin 3.8 (2.1-4.2) g/dL Albumin/Globulin Ratio 1.3 (1.0-2.2) Triglycerides ( - 149) mg/dL Cholesterol ( - 199) mg/dL LDL Cholesterol, Calc ( - 129) mg/dL VLDL Cholesterol mg/dL HDL Cholesterol (60 - ) mg/dL LDL/HDL Ratio (<3.6) Cholesterol/HDL Ratio (<5.0) Lipase 24 (22-51) U/L Urine Color YELLOW Urine Clarity CLEAR (CLEAR) Urine pH 5.5 (5.0-7.5) PH Ur Specific [place] >=1.030 H (1.002-1.030) Urine Protein 100 H (NEGATIVE) mg/dL Urine Glucose (UA) NEGATIVE (NEGATIVE) mg/dL Urine Ketones NEGATIVE (NEGATIVE) mg/dL Urine Occult Blood NEGATIVE (NEGATIVE) Urine Nitrite NEGATIVE (NEGATIVE) Urine Bilirubin NEGATIVE (NEGATIVE) Urine Urobilinogen 0.2 (NORMAL) (NORMAL) E.U./dL Ur Leukocyte Esterase NEGATIVE (NEGATIVE) Urine RBC 0-5 (0-5) /HPF Urine WBC 4-5 (0-3) /HPF Ur Squamous Epith Cells NONE SEEN (<= Few) Urine Bacteria None Seen (None Seen) /HPF Ur Microscopic Review INDICATED Urine Culture Comments NOT INDICATED ABX Reporting Has patient been on IV antibiotics over the past 48 hours?: No Sepsis Event Note (H) - Evaluation Current Stage of Sepsis: Ruled out Assessment/Plan - Problem List (1) Nausea vomiting and diarrhea Impression: pt continue present N/V and diarrhea, can not tolerate oral diet Differential diagnosis can be SBO, now GI surgeon is consulted; ileus, pt has no hx of DM, his A1C is 6.8 now; hydronephrosis, but it is his chronic condition, per ER called pt's urologist's report. continue IVF of NS continue antiemesis PRN will followup surgeon's recommendation, if NG tube lab and vital monitor (2) Hydronephrosis due to obstruction of ureter it appears chronic problem as Dr. Livingston's, pt's urologist, review. continue pain control advise followup Dr. Livingston as out-pt (3) Abdominal distension pt is obese, but reduced abdominal sound. It appears pt does not have tenderness, guiding, or rebound. CT of abdomen reveals SBO, but pt also has diarrhea, pt still has N/V and can not tolerate diet yet. consult with GI surgeon, will followup continue pain meds continue gently IVF for hydration (4) Kidney stone on left side as above, will continue pain control, no urgent intervention needed as Dr. Livingston's review. (5) diarrhea C.Diff test is positive. pt also had elevated WBC order PO Vancomycin isolation as C.Diff protocol IVF of NC lab and vital monitor advance diet as tolerate (6) Obesity pt's A1C is 6.8, consult with pt for loss of weight, continue support. pt report had CPAP and had sleep study, he state he just did not like to have CPAP
[2018-03-25] MEDS: SIMETHICONE CHEW 80 MG TABLET PO SCH ×4 (11:55→21:18)
[2018-03-25] MEDS: SACCHAROMYCES BOULARDII 250 MG CAPSULE PO SCH ×2 (12:02→17:14)
[2018-03-25] MEDS: MORPHINE 2 MG/ML CARPUJECT IVP PRN ×2 (12:10→15:49)
[2018-03-25] MEDS: VANCOMYCIN 125 MG CAPSULE PO SCH ×3 (13:18→21:18)
--- NOTE | 2018-03-25 16:06 | CONSULTATION NOTE ---
Referring Provider Consult Date: 03/25/18 Chief Complaint - Chief Complaint Chief Complaint: diarrhea History of Present Illness - History of Present Illness HPI Comment/Other: 37 yo man presented to the ER with N/V, diarrhea and abdominal pain. CT showed dilated bowel and surgery was consulted to evaluate for a SBO. History - Past Medical History Cardiovascular: reports: None Respiratory: reports: None Neuro: reports: None Endocrine/Autoimmune: reports: None GI: reports: None : reports: None, Kidney stones HEENT: reports: None Psych: reports: None Musculoskeletal: reports: None Derm: reports: None MRSA Hx?: No - POLST Patient has POLST: No Meds/Allgy - Home Medications Home Medications: Ambulatory Orders Medication Instructions Recorded Confirmed No Known Home Medications 03/24/18 03/24/18 - Allergies Allergies/Adverse Reactions: Allergies Allergy/AdvReac Type Severity Reaction Status Date / Time Penicillins Allergy Anaphylaxis Verified 03/24/18 22:50 Review of Systems - Gastrointestinal Gastrointestinal: reports: Abdominal pain, Diarrhea, Nausea, Vomiting Exam - Vital Signs Vital Signs: Vital Signs x48h Temp Pulse Resp BP Pulse Ox 03/25/18 15:58 36.8 C 102 H 16 116/64 92 - Physical Exam General Appearance: positive: No acute distress Eyes Bilateral: positive: Normal inspection ENT: positive: ENT inspection nml Neck: positive: Nml inspection Respiratory: positive: Chest non-tender Cardiovascular: positive: Regular rate & rhythm Abdomen: positive: Non-tender Back: positive: Nml inspection Skin: positive: Color nml Extremities: positive: Non-tender Neurologic/Psychiatric: positive: Oriented x3 Conclusion/Plan - Diagnosis Diagnosis: CDiff colitis - Plan Plan: Although initially consulted for possible SBO, his overall clinical picture is c/w an infectious etiology. Recently, a CDiff titer came back positive. Will continue to follow to watch for resolution of this infection, but no surgery indicated at this time. - Lab Results Lab results reviewed: Yes Fish Bones: 03/25/18 07:05 03/25/18 07:05
[2018-03-26] MEDS: SODIUM CHLORIDE FLUSH 0.9% 10 ML SYRINGE IVP SCH ×3 (01:14→16:50)
[2018-03-26] MEDS: SODIUM CHLORIDE 0.9% 1,000 ML IV SCH ×3 (01:27→21:04)
[2018-03-26 05:40] LABS: BASOPHILS # (AUTO) 0.1 10^3/uL (0.0-0.1); BASOPHILS % (AUTO) 0.5 %; EOSINOPHILS # (AUTO) 0.2 10^3/uL (0.0-0.7); EOSINOPHILS % (AUTO) 1.6 %; HGB - HEMOGLOBIN 15.1 g/dL (14.0-18.0); LYMPHOCYTES # (AUTO) 2.2 10^3/uL (1.5-3.5); LYMPHOCYTES % (AUTO) 19.5 %; MEAN CORPUSCULAR HEMOGLOBIN 28.5 pg (27.0-31.0); MEAN CORPUSCULAR HGB CONC 31.9 g/dL (32.0-36.0); MEAN CORPUSCULAR VOLUME 89.2 fL (80.0-94.0); MEAN PLATELET VOLUME 9.1 fL (7.4-11.4); MONOCYTES # (AUTO) 1.3 10^3/uL (0.0-1.0); MONOCYTES % (AUTO) 11.8 %; NEUTROPHILS # (AUTO) 7.6 10^3/uL (1.5-6.6); NEUTROPHILS % (AUTO) 66.6 %; PLT - PLATELET COUNT 259 10^3/uL (130-450); RED CELL DISTRIBUTION WIDTH 14.1 % (12.0-15.0); WHITE BLOOD COUNT 11.4 x10^3/uL (4.8-10.8)
[2018-03-26 06:06] LABS: ALBUMIN 3.3 g/dL (3.2-5.5); ALBUMIN/GLOBULIN RATIO 0.9 (1.0-2.2); BILIRUBIN,TOTAL 0.2 mg/dL (0.2-1.0); CALCIUM 7.8 mg/dL (8.5-10.3); CREATININE 0.7 mg/dL (0.6-1.2); TOTAL PROTEIN 6.8 g/dL (6.7-8.2)
[2018-03-26] MEDS: PANTOPRAZOLE 40 MG TABLET PO SCH ×2 (06:28→16:50)
[2018-03-26] MEDS: VANCOMYCIN 125 MG CAPSULE PO SCH ×4 (10:19→20:57)
[2018-03-26] MEDS: SACCHAROMYCES BOULARDII 250 MG CAPSULE PO SCH ×2 (10:19→16:50)
[2018-03-26] MEDS: SIMETHICONE CHEW 80 MG TABLET PO SCH ×4 (10:19→22:18)
[2018-03-26] MEDS: POLYETHYLENE GLYCOL 3350 17 GM PACKET PO SCH (10:20)
--- NOTE | 2018-03-26 13:24 | PROVIDER PROGRESS NOTE ---
Subjective - Prog Note Date Prog Note Date: 03/26/18 - Subjective Pt reports feeling: Improved Subjective: pt state he feel better, he tolerate the diet and request advance his diet. pt report he still has a few diarrhea on last night. He denies chest pain, fever, chill, N/v. Current Medications - Current Medications Current Medications: Active Medications Acetaminophen (Tylenol) 650 mg PO Q4HR PRN PRN Reason: Pain 1 to 4 Sodium Chloride (Normal Saline 0.9%) 1,000 mls @ 100 mls/hr IV .Q10H [facility] Last Admin: 03/26/18 11:32 Dose: 100 mls/hr Morphine Sulfate (Morphine (Carpuject)) 2 mg IVP Q2HR PRN PRN Reason: Pain 8 to 10 Last Admin: 03/25/18 15:49 Dose: 2 mg Ondansetron HCl (Zofran Inj) 4 mg IVP Q6HR PRN PRN Reason: Nausea / Vomiting Last Admin: 03/25/18 12:10 Dose: 4 mg Pantoprazole Sodium (Protonix) 40 mg PO BIDAC [facility] Last Admin: 03/26/18 06:28 Dose: 40 mg Polyethylene Glycol (Miralax) 17 gm PO DAILY [facility] Last Admin: 03/26/18 10:20 Dose: Not Given Prochlorperazine Edisylate (Compazine Inj) 10 mg IVP Q6HR PRN PRN Reason: Nausea / Vomiting Last Admin: 03/25/18 15:49 Dose: 10 mg Promethazine HCl (Phenergan Inj) 25 mg IM Q6HR PRN PRN Reason: Nausea / Vomiting Saccharomyces Boulardii (Florastor) 500 mg PO BIDWM [facility] Last Admin: 03/26/18 10:19 Dose: 500 mg Simethicone (Mylicon) 80 mg PO 0900,1300,1800,2100 [facility] Last Admin: 03/26/18 13:03 Dose: 80 mg Sodium Chloride (Normal Saline Flush 0.9%) 10 ml IVP PRN PRN PRN Reason: NEEDED PER PROVIDER ORDERS Last Admin: 03/25/18 06:35 Dose: 10 ml Sodium Chloride (Normal Saline Flush 0.9%) 10 ml IVP 0100,0900,1700 [facility] Last Admin: 03/26/18 10:19 Dose: Not Given Vancomycin HCl (Vancocin) 125 mg PO QID [facility] Last Admin: 03/26/18 13:03 Dose: 125 mg No Known Home Medications 03/24/18 Objective - Vital Signs/Intake & Output Reviewed Vital Signs: Yes Vital Signs: Vital Signs x48h Temp Pulse Resp BP Pulse Ox 03/26/18 07:35 36.9 C 73 16 100/69 91 L Intake & Output: Intake & Output 03/23/18 03/24/18 03/25/18 03/26/18 23:59 23:59 23:59 23:59 Intake Total 4272.167 2525 Output Total 1750 Balance 2522.167 2525 - Objective General Appearance: positive: No acute distress, Alert. negative: Lethargic Eyes Bilateral: positive: Normal inspection, PERRL, No lid inflammation, Conjunctivae nml ENT: positive: ENT inspection nml, Pharynx nml, No signs of dehydration. negative: Purulent nasal drainage, Pharyngeal erythema, Oral lesions Neck: positive: Nml inspection, Thyroid nml, No JVD, Trachea midline. negative: Thyromegaly, Lymphadenopathy (R), Lymphadenopathy (L), Stiff neck, Swelling /bruising, Tracheal deviation Respiratory: positive: Chest non-tender, No respiratory distress, Breath sounds nml. negative: Wheezes, Rales, Rhonchi Cardiovascular: positive: Regular rate & rhythm, No murmur, No gallop. negative: Irregularly irregular, Extrasystoles, Tachycardia, Bradycardia, JVD present, Systolic murmur, Diastolic murmur Peripheral Pulses: 2+ Radial (R), 2+ Radial (L), 2+ Dorsalis pedis (R), 2+ Dorsalis pedis (L) Abdomen: positive: Non-tender, No organomegaly, Nml bowel sounds, No distention. negative: Tenderness, Guarding, Rebound Back: positive: Nml inspection. negative: CVA tenderness (R), CVA tenderness (L) Skin: positive: Color nml, No rash, Warm, Dry. negative: Cyanosis, Diaphoresis, Pallor Extremities: positive: Non-tender, Full ROM, Nml appearance. negative: Calf tenderness, Joint swelling, Pk's sign/cords Neurologic/Psychiatric: positive: Oriented x3, Motor nml, Sensation nml, Mood/affect nml. negative: Weakness, Sensory loss, Facial droop, Slurred/abnml speech, Depressed mood/affect - Lab Results Fish Bones: 03/26/18 05:30 03/26/18 05:30 Other Labs: Lab Results x24hrs 03/26/18 03/26/18 Range/Units 05:30 05:30 WBC 11.4 H (4.8-10.8) x10^3/uL RBC 5.30 (4.70-6.10) 10^6/uL Hgb 15.1 (14.0-18.0) g/dL Hct 47.3 (42.0-52.0) % MCV 89.2 (80.0-94.0) fL MCH 28.5 (27.0-31.0) pg MCHC 31.9 L (32.0-36.0) g/dL RDW 14.1 (12.0-15.0) % Plt Count 259 (130-450) 10^3/uL MPV 9.1 (7.4-11.4) fL Neut # (Auto) 7.6 H (1.5-6.6) 10^3/uL Lymph # (Auto) 2.2 (1.5-3.5) 10^3/uL [place] # (Auto) 1.3 H (0.0-1.0) 10^3/uL Eos # (Auto) 0.2 (0.0-0.7) 10^3/uL Baso # (Auto) 0.1 (0.0-0.1) 10^3/uL Absolute Nucleated RBC 0.01 x10^3/uL Nucleated RBC % 0.1 /100WBC Sodium 138 (135-145) mmol/L Potassium 3.6 (3.5-5.0) mmol/L Chloride 106 (101-111) mmol/L Carbon Dioxide 24 (21-32) mmol/L Anion Gap 8.0 (6-13) BUN 14 (6-20) mg/dL Creatinine 0.7 (0.6-1.2) mg/dL Estimated GFR (MDRD) 128 (>89) Glucose 141 H (70-100) mg/dL Calcium 7.8 L (8.5-10.3) mg/dL Total Bilirubin 0.2 (0.2-1.0) mg/dL AST 27 (10-42) IU/L ALT 47 (10-60) IU/L Alkaline Phosphatase 44 (42-121) IU/L Total Protein 6.8 (6.7-8.2) g/dL Albumin 3.3 (3.2-5.5) g/dL Globulin 3.5 (2.1-4.2) g/dL Albumin/Globulin Ratio 0.9 L (1.0-2.2) ABX Reporting Has patient been on IV antibiotics over the past 48 hours?: Yes Sepsis Event Note (H) - Evaluation Current Stage of Sepsis: Ruled out Assessment/Plan - Problem List (1) Nausea vomiting and diarrhea Impression: 03/26 resolved of N/V but still had a few diarrhea continue IVF of NS continue lab and vital monitor pt continue present N/V and diarrhea, can not tolerate oral diet Differential diagnosis can be SBO, now GI surgeon is consulted; ileus, pt has no hx of DM, his A1C is 6.8 now; hydronephrosis, but it is his chronic condition, per ER called pt's urologist's report. continue IVF of NS continue antiemesis PRN will followup surgeon's recommendation, if NG tube lab and vital monitor (2) Hydronephrosis due to obstruction of ureter stable, advise followup Dr. Livingston as out-pt it appears chronic problem as Dr. Livingston's, pt's urologist, review. continue pain control advise followup Dr. Livingston as out-pt (3) Abdominal distension stable, consult for loss of weight pt is obese, but reduced abdominal sound. It appears pt does not have tenderness, guiding, or rebound. CT of abdomen reveals SBO, but pt also has diarrhea, pt still has N/V and can not tolerate diet yet. consult with GI surgeon, will followup continue pain meds continue gently IVF for hydration (4) Kidney stone on left side as above, will continue pain control, no urgent intervention needed as Dr. Livingston's review. (5) diarrhea 03/26 WBC is significant down, pt feel better continue PO vancomycin continue lab and vital monitor C.Diff test is positive. pt also had elevated WBC order PO Vancomycin isolation as C.Diff protocol IVF of NC lab and vital monitor advance diet as tolerate (6) Obesity pt's A1C is 6.8, consult with pt for loss of weight, continue support. pt report had CPAP and had sleep study, he state he just did not like to have CPAP
[2018-03-27] MEDS: SODIUM CHLORIDE FLUSH 0.9% 10 ML SYRINGE IVP SCH ×4 (02:27→23:46)
[2018-03-27 05:54] LABS: BASOPHILS # (AUTO) 0.1 10^3/uL (0.0-0.1); BASOPHILS % (AUTO) 0.6 %; EOSINOPHILS # (AUTO) 0.2 10^3/uL (0.0-0.7); EOSINOPHILS % (AUTO) 1.9 %; HGB - HEMOGLOBIN 13.7 g/dL (14.0-18.0); LYMPHOCYTES # (AUTO) 2.5 10^3/uL (1.5-3.5); MEAN CORPUSCULAR HEMOGLOBIN 29.2 pg (27.0-31.0); MEAN CORPUSCULAR HGB CONC 32.9 g/dL (32.0-36.0); MEAN CORPUSCULAR VOLUME 88.7 fL (80.0-94.0); MEAN PLATELET VOLUME 8.8 fL (7.4-11.4); MONOCYTES # (AUTO) 1.1 10^3/uL (0.0-1.0); MONOCYTES % (AUTO) 11.9 %; NEUTROPHILS # (AUTO) 5.7 10^3/uL (1.5-6.6); NEUTROPHILS % (AUTO) 59.6 %; PLT - PLATELET COUNT 243 10^3/uL (130-450); RED BLOOD COUNT 4.71 10^6/uL (4.70-6.10); WHITE BLOOD COUNT 9.5 x10^3/uL (4.8-10.8)
[2018-03-27 06:11] LABS: ALBUMIN 3.1 g/dL (3.2-5.5); ALBUMIN/GLOBULIN RATIO 1.1 (1.0-2.2); BILIRUBIN,TOTAL 0.8 mg/dL (0.2-1.0); CALCIUM 7.8 mg/dL (8.5-10.3); CREATININE 0.8 mg/dL (0.6-1.2); TOTAL PROTEIN 5.8 g/dL (6.7-8.2)
[2018-03-27] MEDS: PANTOPRAZOLE 40 MG TABLET PO SCH ×2 (06:20→15:43)
[2018-03-27] MEDS: SODIUM CHLORIDE 0.9% 1,000 ML IV SCH ×3 (06:24→23:38)
[2018-03-27] MEDS ORDERED: POTASSIUM CHLOR 10 MEQ/100 ML 10 MEQ/100 ML BAG IV SCH (07:25)
[2018-03-27] MEDS: SACCHAROMYCES BOULARDII 250 MG CAPSULE PO SCH ×2 (07:39→15:43)
[2018-03-27] MEDS ORDERED: NS W/20 MEQ KCL 1,000 ML IV SCH (08:00)
[2018-03-27] MEDS: VANCOMYCIN 125 MG CAPSULE PO SCH ×4 (09:13→20:27)
[2018-03-27] MEDS: POTASSIUM CHLORIDE 20 MEQ TABLET PO ONE ×2 (09:13→11:15)
[2018-03-27] MEDS: SIMETHICONE CHEW 80 MG TABLET PO SCH ×4 (09:13→20:27)
[2018-03-27] MEDS: POLYETHYLENE GLYCOL 3350 17 GM PACKET PO SCH (09:14)
--- NOTE | 2018-03-27 12:43 | PROVIDER PROGRESS NOTE ---
Subjective - Prog Note Date Prog Note Date: 03/27/18 - Subjective Pt reports feeling: Improved Subjective: pt's diarrhea is slowly improved. he report he had three times of diarrhea with some solid stool. he tolerate the regular diet without N/V or abdominal pain. Current Medications - Current Medications Current Medications: Active Medications Acetaminophen (Tylenol) 650 mg PO Q4HR PRN PRN Reason: Pain 1 to 4 Last Admin: 03/27/18 02:45 Dose: 650 mg Sodium Chloride (Normal Saline 0.9%) 1,000 mls @ 100 mls/hr IV .Q10H [facility] Morphine Sulfate (Morphine (Carpuject)) 2 mg IVP Q2HR PRN PRN Reason: Pain 8 to 10 Last Admin: 03/25/18 15:49 Dose: 2 mg Ondansetron HCl (Zofran Inj) 4 mg IVP Q6HR PRN PRN Reason: Nausea / Vomiting Last Admin: 03/25/18 12:10 Dose: 4 mg Pantoprazole Sodium (Protonix) 40 mg PO BIDAC [facility] Last Admin: 03/27/18 06:20 Dose: 40 mg Polyethylene Glycol (Miralax) 17 gm PO DAILY [facility] Last Admin: 03/27/18 09:14 Dose: Not Given Prochlorperazine Edisylate (Compazine Inj) 10 mg IVP Q6HR PRN PRN Reason: Nausea / Vomiting Last Admin: 03/25/18 15:49 Dose: 10 mg Promethazine HCl (Phenergan Inj) 25 mg IM Q6HR PRN PRN Reason: Nausea / Vomiting Saccharomyces Boulardii (Florastor) 500 mg PO BIDWM [facility] Last Admin: 03/27/18 07:39 Dose: 500 mg Simethicone (Mylicon) 80 mg PO 0900,1300,1800,2100 [facility] Last Admin: 03/27/18 09:13 Dose: 80 mg Sodium Chloride (Normal Saline Flush 0.9%) 10 ml IVP PRN PRN PRN Reason: NEEDED PER PROVIDER ORDERS Last Admin: 03/25/18 06:35 Dose: 10 ml Sodium Chloride (Normal Saline Flush 0.9%) 10 ml IVP 0100,0900,1700 [facility] Last Admin: 03/27/18 09:14 Dose: Not Given Vancomycin HCl (Vancocin) 125 mg PO QID [facility] Last Admin: 03/27/18 09:13 Dose: 125 mg No Known Home Medications 03/24/18 Objective - Vital Signs/Intake & Output Reviewed Vital Signs: Yes Vital Signs: Vital Signs x48h Temp Pulse Resp BP Pulse Ox 03/27/18 11:32 36.7 C 64 20 131/82 H 94 03/27/18 07:50 36.4 C L 78 18 130/78 92 03/27/18 05:49 36.6 C 77 20 115/71 95 Intake & Output: Intake & Output 03/24/18 03/25/18 03/26/18 03/27/18 23:59 23:59 23:59 23:59 Intake Total 4272.167 4665 2909.944 Output Total 1750 3 Balance 2522.167 4665 2906.944 - Objective General Appearance: positive: No acute distress, Alert. negative: Lethargic Eyes Bilateral: positive: Normal inspection, PERRL, No lid inflammation, Conjunctivae nml ENT: positive: ENT inspection nml, Pharynx nml, No signs of dehydration. negative: Purulent nasal drainage, Pharyngeal erythema, Oral lesions Neck: positive: Nml inspection, Thyroid nml, No JVD, Trachea midline. negative: Thyromegaly, Lymphadenopathy (R), Swelling/bruising, Tracheal deviation Respiratory: positive: Chest non-tender, No respiratory distress, Breath sounds nml. negative: Wheezes, Rales, Rhonchi Cardiovascular: positive: Regular rate & rhythm, No murmur, No gallop. negative: Irregularly irregular, Extrasystoles, Tachycardia, Bradycardia, JVD present, Systolic murmur, Diastolic murmur Peripheral Pulses: 2+ Radial (R), 2+ Radial (L), 2+ Dorsalis pedis (R), 2+ Dorsalis pedis (L) Abdomen: positive: Non-tender, No organomegaly, Nml bowel sounds, No distention. negative: Tenderness, Guarding, Rebound Back: positive: Nml inspection. negative: CVA tenderness (R), CVA tenderness (L) Skin: positive: Color nml, No rash, Warm, Dry. negative: Cyanosis, Diaphoresis, Pallor Extremities: positive: Non-tender, Full ROM, Nml appearance. negative: Calf tenderness, Joint swelling, Pk's sign/cords Neurologic/Psychiatric: positive: Oriented x3, Motor nml, Sensation nml, Mood/affect nml. negative: Weakness, Sensory loss, Facial droop, Slurred/abnml speech, Depressed mood/affect - Lab Results Fish Bones: 03/27/18 05:45 03/27/18 05:45 Other Labs: Lab Results x24hrs 03/27/18 03/27/18 03/25/18 Range/Units 05:45 05:45 08:30 WBC 9.5 (4.8-10.8) x10^3/uL RBC 4.71 (4.70-6.10) 10^6/uL Hgb 13.7 L (14.0-18.0) g/dL Hct 41.8 L (42.0-52.0) % MCV 88.7 (80.0-94.0) fL MCH 29.2 (27.0-31.0) pg MCHC 32.9 (32.0-36.0) g/dL RDW 14.0 (12.0-15.0) % Plt Count 243 (130-450) 10^3/uL MPV 8.8 (7.4-11.4) fL Neut # (Auto) 5.7 (1.5-6.6) 10^3/uL Lymph # (Auto) 2.5 (1.5-3.5) 10^3/uL Hood # (Auto) 1.1 H (0.0-1.0) 10^3/uL Eos # (Auto) 0.2 (0.0-0.7) 10^3/uL Baso # (Auto) 0.1 (0.0-0.1) 10^3/uL Absolute Nucleated RBC 0.01 x10^3/uL Nucleated RBC % 0.1 /100WBC Sodium 137 (135-145) mmol/L Potassium 3.1 L (3.5-5.0) mmol/L Chloride 104 (101-111) mmol/L Carbon Dioxide 25 (21-32) mmol/L Anion Gap 8.0 (6-13) BUN 10 (6-20) mg/dL Creatinine 0.8 (0.6-1.2) mg/dL Estimated GFR (MDRD) 110 (>89) Glucose 120 H (70-100) mg/dL Calcium 7.8 L (8.5-10.3) mg/dL Total Bilirubin 0.8 (0.2-1.0) mg/dL AST 16 (10-42) IU/L ALT 34 (10-60) IU/L Alkaline Phosphatase 41 L (42-121) IU/L Total Protein 5.8 L (6.7-8.2) g/dL Albumin 3.1 L (3.2-5.5) g/dL Globulin 2.7 (2.1-4.2) g/dL Albumin/Globulin Ratio 1.1 (1.0-2.2) Ova & Parasites SEE NOTE ABX Reporting Has patient been on IV antibiotics over the past 48 hours?: Yes Sepsis Event Note (H) - Evaluation Current Stage of Sepsis: Ruled out Assessment/Plan - Problem List (1) Nausea vomiting and diarrhea Impression: 03/27 resolved. 03/26resolved of N/V but still had a few diarrhea continue IVF of NS continue lab and vital monitor pt continue present N/V and diarrhea, can not tolerate oral diet Differential diagnosis can be SBO, now GI surgeon is consulted; ileus, pt has no hx of DM, his A1C is 6.8 now; hydronephrosis, but it is his chronic condition, per ER called pt's urologist's report. continue IVF of NS continue antiemesis PRN will followup surgeon's recommendation, if NG tube lab and vital monitor (2) Hydronephrosis due to obstruction of ureter stable, advise followup Dr. Livingston as out-pt it appears chronic problem as Dr. Livingston's, pt's urologist, review. continue pain control advise followup Dr. Livingston as out-pt (3) Abdominal distension stable, consult for loss of weight pt is obese, but reduced abdominal sound. It appears pt does not have tenderness, guiding, or rebound. CT of abdomen reveals SBO, but pt also has diarrhea, pt still has N/V and can not tolerate diet yet. consult with GI surgeon, will followup continue pain meds continue gently IVF for hydration (4) Kidney stone on left side as above, will continue pain control, no urgent intervention needed as Dr. Livingston's review. (5) diarrhea 03/27 pt still present some diarrhea but it slowly improved. WBC is becoming normal now continue Vancomycin PO continue lab and vital monitor 03/26 WBC is significant down, pt feel better continue PO vancomycin continue lab and vital monitor C.Diff test is positive. pt also had elevated WBC order PO Vancomycin isolation as C.Diff protocol IVF of ND lab and vital monitor advance diet as tolerate (6) Obesity pt's A1C is 6.8, consult with pt for loss of weight, continue support. pt report had CPAP and had sleep study, he state he just did not like to have CPAP (7) sleep apnea pt was diagnosed sleep apnea before but he did not use his CPAP. advise pt continue to use CPAP and followup his lard maker as out-pt
[2018-03-27] MEDS: SODIUM CHLORIDE FLUSH 0.9% 10 ML SYRINGE IVP PRN (13:26)
[2018-03-27] MEDS ORDERED: DICYCLOMINE 10 MG CAPSULE PO PRN (13:27)
[2018-03-28 05:24] LABS: BASOPHILS % (AUTO) 0.4 %; EOSINOPHILS # (AUTO) 0.2 10^3/uL (0.0-0.7); HGB - HEMOGLOBIN 14.2 g/dL (14.0-18.0); LYMPHOCYTES # (AUTO) 2.4 10^3/uL (1.5-3.5); LYMPHOCYTES % (AUTO) 22.1 %; MEAN CORPUSCULAR HEMOGLOBIN 29.1 pg (27.0-31.0); MEAN CORPUSCULAR VOLUME 88.2 fL (80.0-94.0); NEUTROPHILS # (AUTO) 7.1 10^3/uL (1.5-6.6); NEUTROPHILS % (AUTO) 66.5 %; PLT - PLATELET COUNT 268 10^3/uL (130-450); RED BLOOD COUNT 4.86 10^6/uL (4.70-6.10); RED CELL DISTRIBUTION WIDTH 13.7 % (12.0-15.0); WHITE BLOOD COUNT 10.7 x10^3/uL (4.8-10.8)
[2018-03-28 05:35] LABS: ALBUMIN 3.4 g/dL (3.2-5.5); ALBUMIN/GLOBULIN RATIO 1.2 (1.0-2.2); BILIRUBIN,TOTAL 0.7 mg/dL (0.2-1.0); CALCIUM 8.2 mg/dL (8.5-10.3); CREATININE 0.6 mg/dL (0.6-1.2); TOTAL PROTEIN 6.3 g/dL (6.7-8.2)
[2018-03-28] MEDS: PANTOPRAZOLE 40 MG TABLET PO SCH (07:05)
[2018-03-28] MEDS: SACCHAROMYCES BOULARDII 250 MG CAPSULE PO SCH (08:10)
[2018-03-28] MEDS: SIMETHICONE CHEW 80 MG TABLET PO SCH (08:10)
[2018-03-28] MEDS: VANCOMYCIN 125 MG CAPSULE PO SCH (08:10)
[2018-03-28] MEDS ORDERED: POTASSIUM CHLORIDE 20 MEQ TABLET PO ONE (08:37)
[2018-03-28] MEDS: SODIUM CHLORIDE 0.9% 1,000 ML IV SCH (10:24)
[2018-03-28] MEDS: SODIUM CHLORIDE FLUSH 0.9% 10 ML SYRINGE IVP SCH (10:35)
[2018-03-28] MEDS: POLYETHYLENE GLYCOL 3350 17 GM PACKET PO SCH (10:35)
--- NOTE | 2018-03-28 11:51 | Discharge Plan ---
Discharge Plan Disposition: Home, Self Care Condition: Poor Prescriptions: Saccharomyces Boulardii [Florastor] 250 mg PO BID #14 capsule Vancomycin [Vancocin] 125 mg PO QID #28 capsule Diet: Regular Activity Restrictions: Activity as Tolerated Shower Restrictions: No (fall precaution) Instruction Topics: Weight Manage Eat Healthy, Weight Manage Take Off Keep Off, Clostridium Difficile Infec, Vancomycin oral solution Additional Instructions or Follow Up instructions: You may followup your PCP in one week, followup your strategic debriefing officer for sleep study as out-pt EDITH. You were found to have C.Diff infection, Oral Vancomycin is prescribed for you. Should your symptoms return or worsen, you may present ER or call 911, or call your PCP for help. No Smoking: If you smoke, Please STOP! Call for help.
--- NOTE | 2018-03-28 11:57 | DISCHARGE SUMMARY ---
Discharge Summary Discharge Date: 03/28/18 Discharging Provider: CANCHOLA Condition at Discharge: Poor Discharge Disposition: 01 Home, Self Care Discharge Facility Name: home - DIAGNOSES Admission Diagnoses: (1) Ileus, unspecified (2) Hydronephrosis due to obstruction of ureter (3) Abdominal distension (4) Kidney stone on left side (5) Nausea vomiting and diarrhea (6) Obesity Discharge Diagnoses with Status of Each Condition: (1) Ileus, unspecified resolved. 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 pt has C.Diff diarrhea. pt is prescribed PO vancomycin for d/c (6) Obesity advise pt loss of weight (8) sleep apnea Pt report he had CPAP. advise pt followup his correctional supervisor to continue management - HPI History of Present Illness: refer from Dr. Cyr's HPI on 03/25/18 for pt as the following: Patient is a 37-year old Male With a past medical history significant only for kidney stones as far as the patient knows, who presents to the emergency department with upset stomach, nausea, vomiting, diarrhea, and abdominal pain that started when he was woken up for at approximately 10 AM on March 24. Patient states that he immediately felt nauseous, went to the b athroom and had 2 large episodes of emesis followed by several episodes of diarrhea and further episodes of emesis throughout the day. Overall he estimates he had about 5 episodes of emesis throughout the day including after presenting to the ED when he had to, as well as about 5-8 episodes of watery diarrhea. He does not describe any blood in either emesis or stool, and describes green colored stool with some yellow clear emesis products. Patient denies any previous antecedent syndrome with fever, nausea, vomiting, chills, change in diet, recent travel, or known sick contacts. He does however admit that he has had multiple family members over for the holiday and does not know if any of them had been sick without his being aware. Patient presented to the emergency room for evaluation and in the ED received 1 dose of Zofran and 1 dose of Phenergan and after repeated attempts to take p.o. fluids, he continued to complain of abdominal discomfort and bloating with even water so the ED physician ordered a CT scan of his abdomen and pelvis. The CT scan was read as a possible small bowel obstruction though Dr. Alexandre felt this was a presentation more consistent with ileus, and it also showed an incidental left kidney stone in the ureter. This is fairly large and measures 2 cm in the largest diameter causing severe hydronephrosis. Initially because of this finding after I was called to admit the patient, I requested input from urology as this might be something that requires surgical intervention during this hospital stay but since it has been chronic I thought this could be confirmed with previous imaging studies. Dr. Alexandre was able to obtain a previous CT scan from 2016 showing the same stone and did talk to the urologist on-call at the [facility] who had reviewed the images stating that this is chronic and does not need to be addressed during this hospital stay as long as he is not symptomatic with flank pain, or other symptoms of urological concern. - HOSPITAL COURSE Hospital Course: pt was admitted for N/V/D. Initially CT of abdomen reveals SBO. But pt tolerate the diet and continue to have bowel movement. Pt has no more N/V. pt was found to have C.Diff diarrhea. PO Vancomycin was prescribed for pt. pt has no more diarrhea after treatment. his WBC became normal after treatment. pt is happy to d/c and is prescribed PO vancomycin to continue the antibiotics course. - ALLERGIES Allergies/Adverse Reactions: Allergies Allergy/AdvReac Type Severity Reaction Status Date / Time Penicillins Allergy Anaphylaxis Verified 03/24/18 22:50 potassium chloride AdvReac Severe Rash Verified 03/27/18 10:17 - MEDICATIONS Home Medications: Ambulatory Orders Medication Instructions Recorded Confirmed Saccharomyces Boulardii [Florastor] 250 mg PO BID #14 capsule 03/28/18 Vancomycin [Vancocin] 125 mg PO QID #28 capsule 03/28/18 - PHYSICAL EXAM AT DISCHARGE General Appearance: positive: No acute distress, Alert. negative: Lethargic Eyes Bilateral: positive: Normal inspection, PERRL, No lid inflammation, Conjunctivae nml ENT: positive: ENT inspection nml, Pharynx nml, No signs of dehydration. negative: Purulent nasal drainage, Pharyngeal erythema, Oral lesions Neck: positive: Nml inspection, Thyroid nml, No JVD, Trachea midline. negative: Thyromegaly, Lymphadenopathy (R), Lymphadenopathy (L), Stiff neck, Swelling/bruising, Tracheal deviation Respiratory: positive: Chest non-tender, No respiratory distress, Breath sounds nml. negative: Wheezes, Rales, Rhonchi Cardiovascular: positive: Regular rate & rhythm, No murmur, No gallop. negative: Irregularly irregular, Extrasystoles, Tachycardia, Bradycardia, JVD present, Systolic murmur, Diastolic murmur Peripheral Pulses: positive: 2+ Abdomen: positive: Non-tender, No organomegaly, Nml bowel sounds, No distention. negative: Tenderness, Guarding, Rebound Back: positive: Nml inspection. negative: CVA tenderness (R), CVA tenderness (L) Skin: positive: Color nml, No rash, Warm, Dry. negative: Cyanosis, Diaphoresis, Pallor Extremities: positive: Non-tender, Full ROM, Nml appearance. negative: Calf tenderness, Joint swelling, Pk's sign/cords Neurologic/Psychiatric: positive: Oriented x3, Motor nml, Sensation nml, Mood/affect nml. negative: Weakness, Sensory loss, Facial droop, Slurred/abnml speech, Depressed mood/affect - LABS Result Diagrams: 03/28/18 05:15 03/28/18 05:15 - SEPSIS Current Stage of Sepsis: Ruled out - FOLLOW UP Follow Up: ou may followup your PCP in one week, followup your correctional supervisor for sleep study as out-pt EDITH, also followup your urologist as your schedule. You were found to have C.Diff infection, Oral Vancomycin is prescribed for you. Should your symptoms return or worsen, you may present ER or call 911, or call your PCP for help. - TIME SPENT Time Spent in Discharge (Minutes): 50
[2018-03-28 12:58] VITALS: BP 137/95
== END 2018-03-28 13:40 | disposition home or self-care (01) | DRG 372 ==
LOC: ED 22:42 → MS2 03-25 05:05 → OBSVTOIN 03-26 10:32
PROVIDERS: ADMIT Family Medicine Sports Medicine; ATTEND Nurse Practitioner Gerontology
DX: A04.72 Enterocolitis due to Clostridium difficile, not specified as recurrent (principal); K56.699 Other intestinal obstruction unspecified as to partial versus complete obstruction; N13.2 Hydronephrosis with renal and ureteral calculous obstruction; Z68.42 Body mass index [BMI] 45.0-49.9, adult; G47.30 Sleep apnea, unspecified; E66.09 Other obesity due to excess calories
CPT/HCPCS: 36415; 71045; 74177; 80053; 80061; 81001; 81003; 83036; 83690; 83721; 83735; 85025; 87045; 87046; 87086; 87177; 87209; 87493; 93005; 96361; 96365; 96375; 96376; 99283; 99284

== ENCOUNTER 2018-09-14 18:13 | Emergency (ER) | payer MEDICAID ==
--- NOTE | 2018-09-14 20:24 | ED Physician Documentation ---
PD HPI HEENT - Stated complaint Stated Complaint: TOOTH PX - Chief complaint Chief Complaint: Heent - History obtained from History obtained from: Patient - History of Present Illness Timing - onset: How many days ago (few) Timing - duration: Days (few) Timing - details: Gradual onset, Still present Location: Sinuses, Tooth (having pain left upper tooth and now with pain to left side of face and around the TMJ. Hurts with mouth opening.) Worsens: Swalllowing, Other (opening mouth) Associated symptoms: No: Fever, Congestion, Facial swelling (but left facial pain) Similar symptoms before: Has not had sx before Review of Systems Constitutional: denies: Fever Ears: reports: Ear pain (left) Nose: denies: Rhinorrhea / runny nose, Congestion Throat: reports: Dental pain / toothache. denies: Sore throat Respiratory: denies: Dyspnea, Cough Neurologic: denies: Headache (but has pain left side of face and at TMJ area) PD PAST MEDICAL HISTORY - Past Medical History Past Medical History: Yes Cardiovascular: None Respiratory: None Neuro: None Endocrine/Autoimmune: None GI: None : None, Kidney stones HEENT: None Psych: None Musculoskeletal: None Derm: None - Past Surgical History Past Surgical History: No - Present Medications Home Medications: Ambulatory Orders Medication Instructions Recorded Confirmed Doxycycline Hyclate 100 mg PO BID #20 capsule 09/14/18 Naproxen 375 mg PO BID #20 tablet 09/14/18 - Allergies Allergies/Adverse Reactions: Allergies Allergy/AdvReac Type Severity Reaction Status Date / Time Penicillins Allergy Anaphylaxis Verified 09/14/18 18:26 potassium chloride AdvReac Severe Rash Verified 09/14/18 18:26 - Social History Does the pt smoke?: No Smoking Status: Never smoker Does the pt drink ETOH?: No Does the pt have substance abuse?: No - Immunizations Immunizations are current?: Yes - POLST Patient has POLST: No PD ED PE NORMAL - Vitals Vital signs reviewed: Yes - General General: Alert and oriented X 3, Well developed/nourished, Other (appears in pain and reluctant to open mouth due to pain left jaw) - HEENT HEENT: Pharynx benign, Other. No: Dentition benign (caries noted. There is some swelling of gum without fluctuance left upper posterior. There is mild redness at floor of left ear canal but the TM appears okay. No bulging in canal. Left TMJ is tender.) - Neck Neck: Supple, no meningeal sign, Other (left anterior adenopathy) - Cardiac Cardiac: RRR, No murmur - Respiratory Respiratory: Clear bilaterally Results - Vitals Vitals: Oxygen O2 Source Room air PD MEDICAL DECISION MAKING - ED course Complexity details: considered differential (Think his dental infection may have eroded through the base and is having some sinus extension given some kind of pressure feeling in a little dizziness. He has a normal gait. No fever, no general headache, and does not look ill. I do not get the sense of it being as bad as a cavernous sinus thrombosis or infection or such. I think we will treated as a dental infection with sinus erosion or extension with antibiotics and anti-inflammatories.), d/w patient Departure - Departure Disposition: 01 Home, Self Care Clinical Impression: Infected dental caries Sinus infection Qualifiers: Sinusitis location: unspecified location Chronicity: acute Recurrence: non- recurrent Qualified Code(s): J01.90 - Acute sinusitis, unspecified Condition: Stable Record reviewed to determine appropriate education?: Yes Instructions: ED Cavity Dental Prescriptions: Doxycycline Hyclate 100 mg PO BID #20 capsule Naproxen 375 mg PO BID #20 tablet Comments: I think the dental infection may have extended into the sinus through the root. This likely accounts for some of your general other symptoms. I do not get a sense of it being a deeper infection or extension. Naproxen anti-inflammatory and doxycycline antibiotic as directed. Stay well- hydrated. Recheck if not improving well over the next 2 to 3 days and return sooner if you have fevers, general headache, feeling worse, as we can explore it more with pictures or imaging. Discharge Date/Time: 09/14/18 20:50
[2018-09-14 20:25] VITALS: BP 155/106
[2018-09-14] MEDS ORDERED: DOXYCYCLINE 100 MG TABLET PO STA (20:40)
[2018-09-14] MEDS ORDERED: NAPROXEN 250 MG TABLET PO STA (20:40)
== END 2018-09-14 20:50 | disposition home or self-care (01) ==
LOC: ED 18:13
DX: J01.90 Acute sinusitis, unspecified (principal); K04.7 Periapical abscess without sinus
CPT/HCPCS: 99283; A9270

== ENCOUNTER 2018-10-09 00:06 | Emergency (ER) | payer MEDICAID ==
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
[2018-10-09] MEDS ORDERED: HYDROcod/ACETAM 5/325 MG TABLET PO STA (01:19)
[2018-10-09] MEDS ORDERED: CLINDAMYCIN 150 MG CAPSULE PO STA (01:19)
[2018-10-09 01:33] VITALS: BP 184/121
== END 2018-10-09 01:33 | disposition home or self-care (01) ==
LOC: ED 00:06
DX: K04.7 Periapical abscess without sinus (principal); G80.9 Cerebral palsy, unspecified
CPT/HCPCS: 99282; 99284; A9270

== ENCOUNTER 2021-08-02 10:43 | Outpatient (CLI) | payer MEDICAID ==
[2021-08-02 18:16] LABS: BASOPHILS # (AUTO) 0.1 10^3/uL (0.0-0.1); BASOPHILS % (AUTO) 1.1 %; EOSINOPHILS # (AUTO) 0.2 10^3/uL (0.0-0.7); EOSINOPHILS % (AUTO) 2.6 %; HCT - HEMATOCRIT 57.2 % (42.0-52.0); HGB - HEMOGLOBIN 18.5 g/dL (14.0-18.0); LYMPHOCYTES # (AUTO) 2.6 10^3/uL (1.5-3.5); LYMPHOCYTES % (AUTO) 27.6 %; MEAN CORPUSCULAR HEMOGLOBIN 28.5 pg (27.0-31.0); MEAN CORPUSCULAR HGB CONC 32.3 g/dL (32.0-36.0); MEAN CORPUSCULAR VOLUME 88.3 fL (80.0-94.0); MONOCYTES % (AUTO) 10.3 %; NEUTROPHILS # (AUTO) 5.4 10^3/uL (1.5-6.6); NEUTROPHILS % (AUTO) 57.8 %; PLT - PLATELET COUNT 328 10^3/uL (130-450); RED BLOOD COUNT 6.48 10^6/uL (4.70-6.10); RED CELL DISTRIBUTION WIDTH 14.1 % (12.0-15.0); WHITE BLOOD COUNT 9.4 x10^3/uL (4.8-10.8)
[2021-08-02 18:47] LABS: ALBUMIN 4.1 g/dL (3.2-5.5); ALBUMIN/GLOBULIN RATIO 1.1 (1.0-2.2); ALKALINE PHOSPHATASE 53 IU/L (42-121); ALT ALANINE AMINOTRANSFERASE 45 IU/L (10-60); AST ASPARTATE AMINOTRANSFERASE 27 IU/L (10-42); BUN - BLOOD UREA NITROGEN 15 mg/dL (6-20); CALCIUM 9.3 mg/dL (8.5-10.3); CARBON DIOXIDE - CO2 27 mmol/L (21-32); CHLORIDE 100 mmol/L (101-111); CHOL/HDL RATIO 4.8 (<5.0); CHOLESTEROL 237 mg/dL; GFR - MDRD 83 (>89); GLUCOSE 116 mg/dL (70-100); HDL CHOLESTEROL 49 mg/dL; LDL CHOLESTEROL,CALCULATED 171 mg/dL; LDL/HDL RATIO 3.5 (<3.6); POTASSIUM 4.2 mmol/L (3.5-5.0); SODIUM 137 mmol/L (135-145); TRIGLYCERIDES 87 mg/dL; VLDL CHOLESTEROL 17 mg/dL
[2021-08-02 18:55] LABS: THYROID STIMULATING HORMONE 1.46 uIU/mL (0.34-5.60)
== END 2021-08-02 10:44 | disposition home or self-care (01) ==
LOC: LAB.N 10:43
PROVIDERS: ATTEND Family Medicine
DX: E07.89 Other specified disorders of thyroid (principal); R03.0 Elevated blood-pressure reading, without diagnosis of hypertension; R53.83 Other fatigue
CPT/HCPCS: 36415; 80050; 80061; 83721; 86376; 86800

== ENCOUNTER 2021-08-08 21:13 | Outpatient (CLI) | payer MEDICAID ==
--- NOTE | 2021-08-09 14:01 | Ultrasound Report ---
PROCEDURE: Head or Neck Soft Tissue INDICATIONS: TENDERNESS OF THYROID TECHNIQUE: Real-time scanning was performed of the thyroid gland, with image documentation. COMPARISON: None FINDINGS: Right: Thyroid lobe measures 5.8 x 2.7 x 4.1 cm, and is homogeneous in echotexture. Left: Thyroid lobe measures 5.4 x 2.3 x 2.3 cm, and is homogenous in echotexture. Isthmus: 9 mm thick. Nodule number: One Location: Right mid anterior Size: 1.6 x 1.3 x 1.5 cm. Composition: Solid Echogenicity: Hyperechoic Shape: wider than tall. Margins: Smooth Echogenic foci: None Total points: 3 ACR TI-RADS category: 3 Nodule number: Two Location: Right mid posterior Size: Less than 5 mm Composition: Cystic Echogenicity: Anechoic Shape: wider than tall. Margins: Smooth Echogenic foci: None Total points: 0 ACR TI-RADS category: 1 IMPRESSION: Lesion 1 is considered category 3. Secondary to size, FNA is recommended. Lesion 2 is considered category 1 without additional follow-up recommended. ACR TI-RADS definitions and recommendations: TI-RADS 1 (benign): 0 points. FNA not needed. TI-RADS 2 (not suspicious): 2 points. FNA not needed. TI-RADS 3 (mildly suspicious): 3 points. "FNA if 2.5 cm or larger, follow up if 1.5 cm or larger (at 1, 3, and 5 years). TI-RADS 4 (moderately suspicious): 4-6 points. "FNA if 1.5 cm or larger, follow up if 1 cm or larger (at 1, 2, 3, and 5 years). TI-RADS 5 (highly suspicious): 7 points or more. "FNA if 1 cm or larger, follow up if 0.5 cm or larger (every year for 5 years). Reviewed by: April Orosco MD on 08/09/2021 2:00 PM PDT Approved by: April Orosco MD on 08/09/2021 2:00 PM PDT Station ID: [id number]
== END 2021-08-08 21:14 | disposition home or self-care (01) ==
LOC: DI 21:13
PROVIDERS: ATTEND Family Medicine
DX: E04.2 Nontoxic multinodular goiter (principal)

== ENCOUNTER 2021-11-22 09:16 | Outpatient (CLI) | payer MEDICAID ==
[2021-11-22] MEDS ORDERED: lidocaine 1% 20 ML MDV ONE (09:40)
[2021-11-22] MEDS ORDERED: lidocaine 1% 20 ML MDV SUBQ ONE (10:43)
--- NOTE | 2021-11-22 16:55 | Ultrasound Report ---
PROCEDURE: FNA Bx w/US Gnd 1st les INDICATIONS: THYROID NODULE TECHNIQUE: The indications, alternatives, benefits, risks, and complications of the procedure were explained to the patient. Written informed consent was obtained and placed in the chart. The area of interest wa s examined sonographically and a site was chosen for ultrasound guided percutaneous sampling. The sk in was prepared and draped in the usual fashion, and anesthetized with 1% lidocaine infiltrated from the skin down to the lesion. Multiple passes were then performed, with contents emptied into an appr [facility] pathology specimen container. A bandage was applied to the area of access at completion of t he study. It is noted that this was a significantly technically challenging exam secondary to location the lesi on, patient body habitus as well as ability for positioning during exam. If there is a nondiagnostic result of this exam, repeat FNA is not recommended due to technical challenges and ultrasound follow- up is recommended. COMPARISON: None. FINDINGS: Location(s) of lesion(s) sampled: Right lobe [place]: 25 gauge hypodermic needles. Number of passes: 6 Medications: 1% lidocaine for local anaesthesia. Complications: None. IMPRESSION: Successful ultrasound-guided thyroid fine needle aspiration, with cytology results pending. Reviewed by: April Orosco MD on 11/22/2021 4:54 PM PDT Approved by: April Orosco MD on 11/22/2021 4:54 PM PDT Station ID: [id number]
== END 2021-11-22 09:17 | disposition home or self-care (01) ==
LOC: DI 09:16
PROVIDERS: ATTEND Physician Assistant
DX: E04.1 Nontoxic single thyroid nodule (principal)
CPT/HCPCS: 10005

== ENCOUNTER 2022-02-27 12:46 | Emergency (ER) | payer MEDICAID ==
--- NOTE | 2022-02-27 13:25 | ED Physician Documentation ---
History of Present Illness - Stated complaint Stated Complaint: SOA/COUGHED UP BLOOD - Chief complaint Chief Complaint: Resp - History obtained from History obtained from: Patient - Additonal information Additional information: This is a very nice 41-year-old gentleman who presented with about a week of cough in developed some mild hemoptysis today. He has been coughing up blood- tinged sputum that was somewhat frothy. He denies having any chest pain, no fever, no abdominal pain, no nausea vomiting or diarrhea, no urinary symptoms, no skin injuries or rashes. He has not had any hematemesis or bloody stool. He has not noticed any Weight loss,weight gain or any lower extremity swelling. He states that a number of people in his household are sick with similar URI type symptoms. He has no history of underlying lung disease, No history of tuberculosis, No history of DVT or PE, no recent immobilization. He is not on any anticoagulation and in fact does not take any medication at all And is quite wary about taking any medication. He has been using Cough drops for his symptoms but continues to have a frequent dry and strong cough. His main concern today however Was a bloody sputum.. Review of Systems Ten Systems: 10 systems reviewed and negative (Except as noted in HPI) PD PAST MEDICAL HISTORY - Past Medical History Past Medical History: Yes Cardiovascular: None Respiratory: None Neuro: Cerebral palsy Endocrine/Autoimmune: None GI: None, Other (Obesity) : Kidney stones HEENT: None Psych: Post traumatic stress disorder Musculoskeletal: None Derm: None - Past Surgical History Past Surgical History: No - Present Medications Home Medications: Ambulatory Orders Medication Instructions Recorded Confirmed Albuterol Sulf [Ventolin Hfa 1 - 2 puffs INH Q4HR PRN #1 each 02/27/22 Inhaler] levoFLOXacin [Levaquin] 750 mg PO DAILY 5 Days #15 tablet 02/27/22 - Allergies Allergies/Adverse Reactions: Allergies Allergy/AdvReac Type Severity Reaction Status Date / Time Penicillins Allergy Anaphylaxis Verified 02/27/22 13:09 potassium chloride AdvReac Severe Rash Verified 02/27/22 13:09 - Social History Does the pt smoke?: No Smoking Status: Never smoker Does the pt drink ETOH?: No Does the pt have substance abuse?: No - Immunizations Immunizations are current?: Yes - POLST Patient has POLST: No PD ED PE NORMAL - Vitals Vital signs reviewed: Yes - General General: Alert and oriented X 3, No acute distress, Well developed/nourished - HEENT HEENT: Atraumatic, Moist mucous membranes, Pharynx benign - Neck Neck: Supple, no meningeal sign, No adenopathy, No JVD - Cardiac Cardiac: RRR (Tachycardia), No murmur, No gallop, No rub - Respiratory Respiratory: No respiratory distress, Other (Right lower lobe crackles, frequent dry cough). No: Clear bilaterally - Abdomen Abdomen: Normal bowel sounds, Soft, Non tender, Non distended - Back Back: No CVA TTP - Derm Derm: Normal color, Warm and dry, No rash - Extremities Extremities: No deformity, No edema - Neuro Neuro: Alert and oriented X 3 Eye Opening: Spontaneous Motor: Obeys Commands Verbal: Oriented GCS Score: 15 - Psych Psych: Normal mood, Normal affect Results - Vitals Vitals: Vital Signs - 24 hr 02/27/22 02/27/22 02/27/22 13:06 15:39 19:00 Temperature 37.4 C Heart Rate 111 H 101 H 102 H Respiratory 18 16 16 Rate Blood Pressure 126/79 109/82 H 115/85 H O2 Saturation 95 99 98 Oxygen O2 Source Room air - Labs Labs: Laboratory Tests 02/27/22 02/27/22 02/27/22 13:38 14:32 14:32 WBC 27.9 H RBC 5.23 Hgb 15.1 Hct 46.2 MCV 88.3 MCH 28.9 MCHC 32.7 RDW 13.1 Plt Count 271 MPV 10.1 Neut # (Auto) Not Reportable Lymph # (Auto) Not Reportable Kinney # (Auto) Not Reportable Eos # (Auto) Not Reportable Baso # (Auto) Not Reportable Absolute Nucleated RBC Not Reportable Total Counted 100 Band Neuts % (Manual) 14 H Abnorm Lymph % (Manual) 0 Nucleated RBC % Not Reportable Neutrophils # (Manual) 25.1 H Lymphocytes # (Manual) 0.6 L Monocytes # (Manual) 2.2 H Eosinophils # (Manual) 0.0 Basophils # (Manual) 0.0 Differential Comment MANUAL DIFFERENTIAL WBC Morphology NORMAL APPEARANCE Platelet Estimate NORMAL (130-450,000) Platelet Morphology NORMAL APPEARANCE RBC Morph Micro Appear NORMAL APPEARANCE Sodium 132 L Potassium 3.9 Chloride 95 L Carbon Dioxide 25 Anion Gap 12.0 BUN 14 Creatinine 1.2 Estimated GFR (MDRD) 67 L Glucose 185 H Lactic Acid Calcium 8.2 L Troponin I High Sens Nasal Adenovirus (PCR) Nasal B. parapertussis DNA (PCR) Nasal Coronavir 229E PCR Nasal Coronavir HKU1 PCR Nasal Coronavir NL63 PCR Nasal Coronavir OC43 PCR Nasal Enterovir/Rhinovir PCR Nasal Influenza A H3 PCR Nasal Influenza B PCR Nasal Parainfluen 1 PCR Nasal Parainfluen 2 PCR Nasal Parainfluen 3 PCR Nasal Parainfluen 4 PCR Nasal RSV (PCR) Nasal B.pertussis DNA PCR Nasal C.pneumoniae (PCR) Tom Human Metapneumo PCR Nasal M.pneumoniae (PCR) Nasal SARS-CoV-2 (PCR) Influenza A (Rapid) Negative Influenza B (Rapid) Negative 02/27/22 02/27/22 02/27/22 14:32 15:13 16:05 WBC RBC Hgb Hct MCV MCH MCHC RDW Plt Count MPV Neut # (Auto) Lymph # (Auto) Kinney # (Auto) Eos # (Auto) Baso # (Auto) Absolute Nucleated RBC Total Counted Band Neuts % (Manual) Abnorm Lymph % (Manual) Nucleated RBC % Neutrophils # (Manual) Lymphocytes # (Manual) Monocytes # (Manual) Eosinophils # (Manual) Basophils # (Manual) Differential Comment WBC Morphology Platelet Estimate Platelet Morphology RBC Morph Micro Appear Sodium Potassium Chloride Carbon Dioxide Anion Gap BUN Creatinine Estimated GFR (MDRD) Glucose Lactic Acid 3.3 H* Calcium Troponin I High Sens 7.5 Nasal Adenovirus (PCR) NOT DETECTED Nasal B. parapertussis DNA (PCR) NOT DETECTED Nasal Coronavir 229E PCR NOT DETECTED Nasal Coronavir HKU1 PCR NOT DETECTED Nasal Coronavir NL63 PCR NOT DETECTED Nasal Coronavir OC43 PCR NOT DETECTED Nasal Enterovir/Rhinovir PCR NOT DETECTED Nasal Influenza A H3 PCR DETECTED A Nasal Influenza B PCR NOT DETECTED Nasal Parainfluen 1 PCR NOT DETECTED Nasal Parainfluen 2 PCR NOT DETECTED Nasal Parainfluen 3 PCR NOT DETECTED Nasal Parainfluen 4 PCR NOT DETECTED Nasal RSV (PCR) NOT DETECTED Nasal B.pertussis DNA PCR NOT DETECTED Nasal C.pneumoniae (PCR) NOT DETECTED Tom Human Metapneumo PCR NOT DETECTED Nasal M.pneumoniae (PCR) NOT DETECTED Nasal SARS-CoV-2 (PCR) NOT DETECTED Influenza A (Rapid) Influenza B (Rapid) PD MEDICAL DECISION MAKING - ED course Complexity details: reviewed results, re-evaluated patient, considered differential, d/w patient ED course: This is a 41-year-old male with past medical history of obesity who presented with his cough and cold symptoms for several days Followed by some mild hemoptysis. Patient is well-appearing on physical exam, saturating 99 to 100% on room air however does have some tachycardia though blood pressure is stable and he is afebrile here. He does have a frequent cough. Initial differential considered included viral URI, pneumonia, tuberculosis, pulmonary embolus, Among others. His initial chest x-ray Was negative however his labs are concerning for possible infection with a white blood cell count of 29,000 with a left shift and a lactate of 3.3. Patient subsequently had blood cultures obtained and he was started on Levaquin given his history of anaphylaxis with penicillins, he was also given a liter of IV fluid for his elevated lactate. I had ordered a CTA of his chest to rule out pneumonia and pulmonary embolus as he did have some hemoptysis. The CTA showed a multifocal right-sided pneumonia ButThe quality was not good enough to evaluate for PE. Have lower suspicion for PE as patient is oxygenating well. I discussed all these findings with the patient and I did recommend hospitalization for IV antibiotics given his significantly elevated white blood cell count and meeting sepsis criteria. The patient however, would like to try management at homeAs he has extreme difficulty sleeping and shared spaces and he feels he will be more comfortable at home. He is not hypoxic in his actually well-appearing despite his lab work suggestive of more significant infection. I did encourage hospitalization however as patient would like to go home and we are in limited space, we will discharge him home on a course of Lev aquin for multifocal pneumonia with close follow-up if he were to worsen at any point time. He was encouraged to return to the ER if worsening and I recommended follow-up with his primary doctor regardless within a week or 2 to have a repeat x-ray to ensure clearance. He was encouraged to stay well hydrated, may take Tylenol ibuprofen as needed and he was also given albuterol to use as needed which she has used in the past. Departure - Departure Disposition: 01 Home, Self Care Clinical Impression: Multifocal pneumonia, Influenza A (H1N1) Condition: Good Instructions: ED Pneumonia Adult, ED Flu Prescriptions: Albuterol Sulf [Ventolin Hfa Inhaler] 1 - 2 puffs INH Q4HR PRN #1 each PRN Reason: Shortness Of Air/Wheezing levoFLOXacin [Levaquin] 750 mg PO DAILY 5 Days #15 tablet Comments: You presented with cough and bloody sputum. We obtained a work-up which was significant for elevated white blood cell count and signs of infection as well as signs of right sided pneumonia on your chest CT. Your influenza A test was also positive.We discussed admission to the hospital for IV antibiotics however at this time You would like to go home and I think it is reasonable to try to treat with oral antibiotics in the outpatient setting. Please take antibiotics as prescribed, you have also given you an albuterol inhaler and try to get plenty of rest. If you develop worsening symptoms including shortness of breath, fever, increasing bloody sputum, or other new concerns, please do not hesitate to return to the ER. Discharge Date/Time: 02/27/22 19:03
--- NOTE | 2022-02-27 14:17 | XRAY Report ---
PROCEDURE: Chest 2 View X-Ray INDICATIONS: hemoptysis TECHNIQUE: 2 views of the chest were acquired. COMPARISON: Single view the chest dated 03/25/2018 FINDINGS: Surgical changes and devices: None. Lungs and pleura: No pleural effusions or pneumothorax. Lungs are clear. Mediastinum: Mediastinal contours are normal. Heart size is normal. Bones and chest wall: No suspicious bony abnormalities. Soft tissues appear unremarkable. IMPRESSION: No acute cardiopulmonary findings. Reviewed by: Clarice Loyd MD on 02/27/2022 2:16 PM PST Approved by: Clarice Loyd MD on 02/27/2022 2:16 PM PST Station ID: [id number]
[2022-02-27 14:44] LABS: BASOPHILS % (AUTO) 0.4 %; EOSINOPHILS % (AUTO) 0.3 %; HCT - HEMATOCRIT 46.2 % (42.0-52.0); HGB - HEMOGLOBIN 15.1 g/dL (14.0-18.0); LYMPHOCYTES % (AUTO) 3.9 %; MEAN CORPUSCULAR HEMOGLOBIN 28.9 pg (27.0-31.0); MEAN CORPUSCULAR HGB CONC 32.7 g/dL (32.0-36.0); MEAN CORPUSCULAR VOLUME 88.3 fL (80.0-94.0); MEAN PLATELET VOLUME 10.1 fL (7.4-11.4); MONOCYTES % (AUTO) 5.8 %; NEUTROPHILS % (AUTO) 88.6 %; PLT - PLATELET COUNT 271 10^3/uL (130-450); RED BLOOD COUNT 5.23 10^6/uL (4.70-6.10); RED CELL DISTRIBUTION WIDTH 13.1 % (12.0-15.0); WHITE BLOOD COUNT 27.9 x10^3/uL (4.8-10.8)
[2022-02-27 14:47] LABS: ABNORMAL LYMPHS % (MANUAL) 0 %
[2022-02-27 15:14] LABS: CALCIUM 8.2 mg/dL (8.5-10.3); CREATININE 1.2 mg/dL (0.6-1.2); POTASSIUM 3.9 mmol/L (3.5-5.0)
[2022-02-27 15:24] LABS: BAND NEUTROPHILS % (MANUAL) 14 %; DIFFERENTIAL COMMENT MANUAL DIFFERENTIAL; LYMPHOCYTES # (MANUAL) 0.6 10^3/uL (1.5-3.5); LYMPHOCYTES % (MANUAL) 2 %; MONOCYTES # (MANUAL) 2.2 10^3/uL (0.0-1.0); NEUTROPHILS # (MANUAL) 25.1 10^3/uL (1.5-6.6); PLATELET ESTIMATE, MANUAL NORMAL (130-450,000) (NORMAL); PLATELET MORPHOLOGY NORMAL APPEARANCE (NORMAL); RBC MORPHOLOGY (MULTIPLE) NORMAL APPEARANCE (NORMAL); WBC MORPHOLOGY (MULTIPLE) NORMAL APPEARANCE (NORMAL)
[2022-02-27] MEDS ORDERED: iohexoL-300 100 ML VIAL ONE (15:33)
[2022-02-27] MEDS ORDERED: SODIUM CHLORIDE 0.9% 1,000 ML IV STA (15:33)
[2022-02-27] MEDS ORDERED: AZITHROMYCIN INJ 500 MG in SODIUM CHLORIDE 0.9% 250 ML IV STA (15:40)
[2022-02-27] MEDS ORDERED: levoFLOXacin 750 MG/150 ML 750 MG/150 ML BAG IV STA (15:42)
[2022-02-27] MEDS ORDERED: LORazepam 2 MG/ML VIAL IVP STA (16:32)
[2022-02-27 17:01] LABS: B. PARAPERTUSSIS- RESP PCR PAN NOT DETECTED; B. PERTUSSIS- RESP PCR PANEL NOT DETECTED; C. PNEUMONIAE- RESP PCR PANEL NOT DETECTED; CORONAVIRUS 229E-RESP PCR NOT DETECTED; CORONAVIRUS HKU1-RESP PCR NOT DETECTED; CORONAVIRUS NL63-RESP PCR NOT DETECTED; CORONAVIRUS OC43-RESP PCR NOT DETECTED; HUMAN METAPNEUMOVIRUS NOT DETECTED; INFLUENZA A H3- RESP PCR PANEL DETECTED; INFLUENZA B - RESP PCR PANEL NOT DETECTED; M. PNEUMONIAE- RESP PCR PANEL NOT DETECTED; PARAINFLUENZA VIRUS 1 NOT DETECTED; PARAINFLUENZA VIRUS 2 NOT DETECTED; PARAINFLUENZA VIRUS 3 NOT DETECTED; PARAINFLUENZA VIRUS 4 NOT DETECTED; RHINOVIRUS/ENTEROVIRUS NOT DETECTED; RSV- RESP PCR PANEL NOT DETECTED; SARS-CoV-2 -RESP PCR PANEL NOT DETECTED
[2022-02-27] MEDS ORDERED: iohexoL-300 100 ML VIAL IVP ONE (17:39)
--- NOTE | 2022-02-27 18:30 | CT Report ---
PROCEDURE: ANGIO CHEST W/WO INDICATIONS: hemoptysis, sepsis. r/o PE, eval for pna. CONTRAST: 80mL Omni 300 TECHNIQUE: After the administration of intravenous contrast, 2 mm axial images were acquired from the pulmonary apices to the posterior costophrenic angles during the arterial phase. In addition, 1 mm lung kernel and 5 mm soft tissue kernel reconstructions were performed. 3-dimensional coronal oblique maximum int ensity projection (MIP) reformats, 8 mm axial MIP, and 5 mm coronal and sagittal MPR reformats were t hen performed through the thorax. For radiation dose reduction, the following was used: automated exp osure control, adjustment of mA and/or kV according to patient size. COMPARISON: Chest x-ray performed the same day FINDINGS: Image quality: Suboptimal due to respiratory motion.. Pulmonary arteries: Given respiratory motion, pulmonary bullae in the left upper lobe and lingula can not be excluded. Pulmonary arteries are grossly normal size. Lungs and pleura: Patchy right posterior suprahilar and dense right posterior lower lobe airspace con solidation with air bronchograms. Given respiratory motion, lungs are otherwise grossly clear. No ple ural effusion or pneumothorax. Mediastinum: Heart size is normal. No intraventricular septal bowing. No pericardial effusion. Normal caliber aorta and great vessels. There is prominent right hilar adenopathy in the right subcarinal b ronchovascular node. The esophagus is normal without hiatal hernia. There are several retrocrural and distal periesophageal lymph nodes. Bones and chest wall: No suspicious bony lesions. Ribs and thoracic spine appear intact throughout. No axillary or supraclavicular adenopathy. The thyroid gland is mildly diffusely enlarged. Abdomen: Upper abdominal organs in the early phase of enhancement demonstrated hepatomegaly, moderate hepatic steatosis, and chronic appearing severe left hydronephrosis. There are likely bilateral intr arenal calculi. IMPRESSION: 1. Suboptimal exam and left upper lobe pulmonary emboli cannot be excluded. 2. Hemoptysis can be explained by multifocal right posterior lung pneumonia with air bronchograms and reactive adenopathy. 3. Retrocrural and periesophageal lymph nodes probably also reactive. 4. Left hydronephrosis and bilateral renal calculi of uncertain chronicity. Correlate with clinical h istory and current symptoms.. Reviewed by: Aneta Swenson MD on 02/27/2022 6:29 PM PST Approved by: Aneta Swenson MD on 02/27/2022 6:29 PM [facility] Station ID: [id number]
[2022-02-27 19:01] VITALS: BP 115/85
== END 2022-02-27 19:03 | disposition home or self-care (01) ==
LOC: ED 12:46
DX: J10.00 Influenza due to other identified influenza virus with unspecified type of pneumonia (principal); Z20.822 Contact with and (suspected) exposure to COVID-19
CPT/HCPCS: 36415; 71046; 71275; 80048; 83605; 84484; 85025; 87040; 87275; 87276; 87633; 93005; 96365; 96366; 99284; Q9967

== ENCOUNTER 2022-03-20 13:26 | Emergency (ER) | payer MEDICAID | END 2022-03-20 13:30 | disposition left against medical advice (07) | LOC: ED 13:26 | DX: Z53.21 Procedure and treatment not carried out due to patient leaving prior to being seen by health care provider (principal) ==

== ENCOUNTER 2022-03-22 12:01 | Emergency (ER) | payer MEDICAID ==
[2022-03-22 12:58] VITALS: BP 149/83
[2022-03-22] MEDS ORDERED: ALBUTEROL NEB 2.5 MG/3 ML INH STA (13:04)
--- NOTE | 2022-03-22 13:09 | ED Physician Documentation ---
History of Present Illness - Stated complaint Stated Complaint: RT FOOT SWOLLEN/SOA - Chief complaint Chief Complaint: General - Additonal information Additional information: 41-year-old male returns to the emergency department for evaluation of persistent cough and now swelling on his right foot. This gentleman initially presented to the emergency department on 27 February for hemoptysis. At that time he was noted to have a fairly elevated white blood cell count and was influenza A positive. Subsequent CT angio of the chest showed right posterior lobe pneumonia. Patient was discharged with a prescription for Levaquin and albuterol.At the time of ER visit a number weeks ago he was encouraged to stay for repeat evaluation and further treatment but he elected to leave. Patient reports that the cough has not improved but he has not had any fevers. About 3 days ago he began having pain in the right foot and began having redness and swelling yesterday. He has no calf pain. Review of Systems Constitutional: denies: Fever Ears: reports: Ear pain. denies: Drainage/discharge Respiratory: reports: Cough. denies: Dyspnea, Hemoptysis GI: reports: Reviewed and negative : reports: Reviewed and negative Skin: reports: Other (Right foot erythema) Musculoskeletal: denies: Neck pain, Back pain Neurologic: reports: Reviewed and negative PD PAST MEDICAL HISTORY - Past Medical History Cardiovascular: None Respiratory: None Neuro: Cerebral palsy Endocrine/Autoimmune: None GI: None, Other (Obesity) : Kidney stones HEENT: None Psych: Post traumatic stress disorder Musculoskeletal: None Derm: None - Past Surgical History Past Surgical History: No - Present Medications Home Medications: Ambulatory Orders Medication Instructions Recorded Confirmed Albuterol Sulf [Ventolin Hfa 1 - 2 puffs INH Q4HR PRN #1 each 02/27/22 03/22/22 Inhaler] Doxycycline Hyclate 100 mg PO BID #20 cap 03/22/22 - Allergies Allergies/Adverse Reactions: Allergies Allergy/AdvReac Type Severity Reaction Status Date / Time Penicillins Allergy Anaphylaxis Verified 03/22/22 12:26 potassium chloride AdvReac Severe Rash Verified 03/22/22 12:26 - Social History Does the pt smoke?: No Smoking Status: Never smoker Does the pt drink ETOH?: No Does the pt have substance abuse?: No - Immunizations Immunizations are current?: Yes - POLST Patient has POLST: No PD ED PE NORMAL - General General: Alert and oriented X 3, No acute distress, Well developed/nourished (morbidely obese) - HEENT HEENT: Atraumatic, Ears normal (No effusion behind either TM), Moist mucous membranes - Neck Neck: Supple, no meningeal sign, No adenopathy - Cardiac Cardiac: RRR, No murmur - Respiratory Respiratory: No respiratory distress. No: Clear bilaterally (Diffuse coarse rhonchi) - Abdomen Abdomen: Normal bowel sounds, Soft, Non tender - Derm Derm: Normal color, Warm and dry. No: No rash (Right foot erythema and indurati on without lymphangina. Swelling and erythema does not extend beyond the foot. No calf pain swelling or tenderness.) - Extremities Extremities: No deformity, No tenderness to palpate, Normal ROM s pain - Neuro Neuro: Alert and oriented X 3, extrusion die repairer 2-12 intact Eye Opening: Spontaneous Motor: Obeys Commands Verbal: Oriented GCS Score: 15 Results - Vitals Vitals: Vital Signs - 24 hr 03/22/22 03/22/22 12:21 12:56 Temperature 36.4 C L Heart Rate 93 98 Respiratory 16 22 Rate Blood Pressure 146/94 H 149/83 H O2 Saturation 98 92 Oxygen O2 Source Room air - Labs Labs: Laboratory Tests 03/22/22 03/22/22 03/22/22 13:25 13:25 13:25 WBC 14.4 H RBC 4.88 Hgb 13.2 L Hct 42.8 MCV 87.7 MCH 27.0 MCHC 30.8 L RDW 12.8 Plt Count 611 H MPV 9.8 Neut # (Auto) 8.8 H Lymph # (Auto) 3.1 Josephine # (Auto) 1.5 H Eos # (Auto) 0.6 Baso # (Auto) 0.1 Absolute Nucleated RBC 0.00 Nucleated RBC % 0.0 Sodium 134 L Potassium 3.9 Chloride 97 L Carbon Dioxide 29 Anion Gap 8.0 BUN 10 Creatinine 0.8 Estimated GFR (MDRD) 108 Glucose 128 H Lactic Acid Calcium 8.9 B-Natriuretic Peptide 24 03/22/22 13:25 WBC RBC Hgb Hct MCV MCH MCHC RDW Plt Count MPV Neut # (Auto) Lymph # (Auto) Josephine # (Auto) Eos # (Auto) Baso # (Auto) Absolute Nucleated RBC Nucleated RBC % Sodium Potassium Chloride Carbon Dioxide Anion Gap BUN Creatinine Estimated GFR (MDRD) Glucose Lactic Acid 1.4 Calcium B-Natriuretic Peptide - Rads (name of study) cxr Radiology: Final report received (No acute cardiopulmonary abnormality) PD Medical Decision Making - ED course Complexity details: reviewed results, re-evaluated patient, considered differential, d/w patient ED course: This is a 41-year-old male that presents to the emergency department for evaluation of persistent cough that he was initially treated for on [address] imaging of the chest at that time showed bilateral posterior pneumonia. He was also advised to take albuterol but he has not because he finds it makes him jittery. Over the last 3 days he is also noted swelling in the right foot that has gotten painful erythematous and indurated. He has a remote history of simply scratching the foot a few weeks ago which may be the inciting cause. On presentation to the emergency department he is alert to though obese. He is not hypoxic and is in no respiratory distress. He has clear sputum when he coughs. Chest x-ray today demonstrates no findings of pneumonia. I did obtain a CBC and electrolytes. I am able to compare them to the most recent ones completed in late January and find that his leukocytosis has markedly improved from 27,000 to 14,000 today. The right foot is consistent with a simple cellulitis. By Wells criteria he is low risk for a DVT and given lack of calf pain or swelling I have deferred doing an ultrasound. He will be started on doxycycline which has appropriate staph and strep coverage. I discussed elevating the leg. Emergent return precautions were discussed for failure symptoms to resolve. Departure - Departure Disposition: 01 Home, Self Care Clinical Impression: Cellulitis of right foot Condition: Stable Record reviewed to determine appropriate education?: Yes Prescriptions: Doxycycline Hyclate 100 mg PO BID #20 cap Comments: Mike you returned to the emergency department today because your cough has not fully abated. You were treated for pneumonia on 27 February. You also have developed some redness swelling and pain on your right foot. Your chest x-ray today does not show signs of pneumonia and in comparison to your white blood cell count a number of weeks ago it has markedly improved. Your cough got better by using the albuterol here in the emergency department and I encourage you to use your inhaler 4 times a day at home to help reduce bronchospasm and thus cough. To treat the redness and swelling in your foot which looks like cellulitis and may be secondary to the foot scratch you had a number of weeks ago and starting on medication called doxycycline. This has been sent to the [facility] pharmacy. Continue to elevate your foot is much as possible. If you find that you have increased right foot swelling redness, any fevers or red streaking despite the antibiotics and please return sooner to the ER for second evaluation
--- NOTE | 2022-03-22 13:18 | XRAY Report ---
PROCEDURE: Chest 1 View X-Ray INDICATIONS: RECENT PNEUMONIA; DYSPNEA TECHNIQUE: One view of the chest was acquired. COMPARISON: 02/27/2022. FINDINGS: Surgical changes and devices: None. Lungs and pleura: No pleural effusions or pneumothorax. Increased bronchovascular markings in bilate ral hilar region are seen with mild bronchial wall thickening. No definite focal infiltrate.. Mediastinum: Mediastinal contours appear normal. Heart size is normal. Bones and chest wall: No suspicious bony lesions. Overlying soft tissues appear unremarkable. IMPRESSION: Suggestion of mild reactive airway disease such as bronchitis or viral illness. No definite focal inf iltrate. No pleural effusion or pneumothorax. Reviewed by: Luke Combs MD on 03/22/2022 1:16 PM PST Approved by: Luke Combs MD on 03/22/2022 1:16 PM PST Station ID: [id number]
[2022-03-22 13:30] LABS: BASOPHILS # (AUTO) 0.1 10^3/uL (0.0-0.1); BASOPHILS % (AUTO) 0.7 %; EOSINOPHILS # (AUTO) 0.6 10^3/uL (0.0-0.7); HCT - HEMATOCRIT 42.8 % (42.0-52.0); HGB - HEMOGLOBIN 13.2 g/dL (14.0-18.0); LYMPHOCYTES # (AUTO) 3.1 10^3/uL (1.5-3.5); LYMPHOCYTES % (AUTO) 21.8 %; MEAN CORPUSCULAR HGB CONC 30.8 g/dL (32.0-36.0); MEAN CORPUSCULAR VOLUME 87.7 fL (80.0-94.0); MEAN PLATELET VOLUME 9.8 fL (7.4-11.4); MONOCYTES # (AUTO) 1.5 10^3/uL (0.0-1.0); MONOCYTES % (AUTO) 10.4 %; NEUTROPHILS # (AUTO) 8.8 10^3/uL (1.5-6.6); NEUTROPHILS % (AUTO) 61.4 %; PLT - PLATELET COUNT 611 10^3/uL (130-450); RED BLOOD COUNT 4.88 10^6/uL (4.70-6.10); RED CELL DISTRIBUTION WIDTH 12.8 % (12.0-15.0); WHITE BLOOD COUNT 14.4 x10^3/uL (4.8-10.8)
[2022-03-22 13:37] LABS: CALCIUM 8.9 mg/dL (8.5-10.3); CREATININE 0.8 mg/dL (0.6-1.2); POTASSIUM 3.9 mmol/L (3.5-5.0)
== END 2022-03-22 14:10 | disposition home or self-care (01) ==
LOC: ED 12:01
DX: L03.115 Cellulitis of right lower limb (principal); R05.9 Cough, unspecified; Z87.01 Personal history of pneumonia (recurrent); E66.9 Obesity, unspecified; Z68.42 Body mass index [BMI] 45.0-49.9, adult
CPT/HCPCS: 36415; 80048; 83605; 83880; 85025; 87040; 94640; 99284

== ENCOUNTER 2023-02-27 14:57 | Emergency (ER) | payer MEDICAID ==
[2023-02-27 15:17] VITALS: BP 160/114; O2SAT 95
--- NOTE | 2023-02-27 15:33 | ED Physician Documentation ---
History of Present Illness - Stated complaint Stated Complaint: UPPER JAW PX - Chief complaint Chief Complaint: Heent - Additonal information Additional information: Fall, gumline you to get here in time no I went try to go to bed I did he c racked his left upper molar on and went to [facility] dental clinic today where the dentist "fiddled" with his tooth. He was told to return on March 27 for repair. Started on ibuprofen. Since being seen in clinic increased pain. No fevers, no trismus no facial swelling. Review of Systems Constitutional: denies: Fever Throat: reports: Dental pain / toothache PD PAST MEDICAL HISTORY - Past Medical History Cardiovascular: None Respiratory: None Neuro: Cerebral palsy Endocrine/Autoimmune: None GI: None, Other (Obesity) : Kidney stones HEENT: None Psych: Post traumatic stress disorder Musculoskeletal: None Derm: None - Past Surgical History Past Surgical History: No - Present Medications Home Medications: Ambulatory Orders Medication Instructions Recorded Confirmed Albuterol Sulf [Ventolin Hfa 1 - 2 puffs INH Q4HR PRN #1 each 02/27/22 03/22/22 Inhaler] Doxycycline Hyclate 100 mg PO BID #14 cap 02/27/23 - Allergies Allergies/Adverse Reactions: Allergies Allergy/AdvReac Type Severity Reaction Status Date / Time Penicillins Allergy Anaphylaxis Verified 02/27/23 15:11 potassium chloride AdvReac Severe Rash Verified 02/27/23 15:11 - Social History Does the pt smoke?: No Smoking Status: Never smoker Does the pt drink ETOH?: No Does the pt have substance abuse?: No - Immunizations Immunizations are current?: Yes - POLST Patient has POLST: No PD ED PE NORMAL - General General: Alert and oriented X 3, No acute distress, Well developed/nourished - HEENT HEENT: Atraumatic, Other (Tenderness to the left upper molar without gumline swelling erythema or drainage. No facial swelling. No trismus. Normal phonation normal swallow.) Results - Vitals Vitals: Vital Signs - 24 hr 02/27/23 15:06 Temperature 37.2 C Heart Rate 97 Respiratory 18 Rate Blood Pressure 160/114 H O2 Saturation 95 Oxygen O2 Source Room air PD Medical Decision Making - ED course Complexity details: d/w patient ED course: Here with acute pain in the left upper jaw after a dentist evaluated his fractured tooth this morning now with uncontrolled pain despite ibuprofen. May have an early infection. Will be started on doxycycline given history of penicillin allergy. Advised to follow closely with dentistry advised Orajel and Anbesol agents. Discharge home with usual emergent return precautions discussed for worsening symptoms Departure - Departure Disposition: 01 Home, Self Care Clinical Impression: Dentalgia Condition: Stable Prescriptions: Doxycycline Hyclate 100 mg PO BID #14 cap Comments: Mike you had your tooth evaluated this morning and now you are having worsening pain. I recommend that you buy Anbesol or [id number] [id number] and use that to help control the local tooth pain. You may be developing some early infection so I sent a prescription for doxycycline to the [facility] in [place]. Important you continue to follow closely with [facility] and let them know that the pain is worsened to see if they want to see you sooner. Return to the ER for any new or worsening symptoms.
== END 2023-02-27 16:08 | disposition home or self-care (01) ==
LOC: ED 14:57
DX: K08.89 Other specified disorders of teeth and supporting structures (principal)
CPT/HCPCS: 99282; 99283

== ENCOUNTER 2023-04-05 14:11 | Emergency (ER) | payer MEDICAID ==
[2023-04-05 14:55] LABS: BASOPHILS # (AUTO) 0.1 10^3/uL (0.0-0.1); BASOPHILS % (AUTO) 1.1 %; EOSINOPHILS # (AUTO) 0.3 10^3/uL (0.0-0.7); EOSINOPHILS % (AUTO) 2.8 %; HCT - HEMATOCRIT 52.8 % (42.0-52.0); HGB - HEMOGLOBIN 16.9 g/dL (14.0-18.0); LYMPHOCYTES # (AUTO) 2.9 10^3/uL (1.5-3.5); MEAN CORPUSCULAR VOLUME 87.4 fL (80.0-94.0); MEAN PLATELET VOLUME 10.1 fL (7.4-11.4); MONOCYTES % (AUTO) 9.9 %; NEUTROPHILS # (AUTO) 5.9 10^3/uL (1.5-6.6); NEUTROPHILS % (AUTO) 57.8 %; PLT - PLATELET COUNT 298 10^3/uL (130-450); RED BLOOD COUNT 6.04 10^6/uL (4.70-6.10); RED CELL DISTRIBUTION WIDTH 13.6 % (12.0-15.0); WHITE BLOOD COUNT 10.3 x10^3/uL (4.8-10.8)
[2023-04-05 15:16] LABS: ALBUMIN 4.1 g/dL (3.2-5.5); ALBUMIN/GLOBULIN RATIO 1.3 (1.0-2.2); BILIRUBIN,TOTAL 0.6 mg/dL (0.2-1.0); CALCIUM 9.5 mg/dL (8.5-10.3); CREATININE 0.8 mg/dL (0.6-1.3); MAGNESIUM 1.7 mg/dL (1.7-2.3); POTASSIUM 3.7 mmol/L (3.5-4.5); TOTAL PROTEIN 7.3 g/dL (6.4-8.9)
--- NOTE | 2023-04-05 15:17 | XRAY Report ---
PROCEDURE: Chest 1V INDICATIONS: Chest pain TECHNIQUE: One view of the chest was acquired. COMPARISON: 01/20/2022, 02/27/2022 FINDINGS: Surgical changes and devices: None. Lungs and pleura: An incomplete inspiratory result is noted, with low lung volumes and crowding of t he vascular markings. No focal infiltrates are seen. No large pneumothorax or large pleural effusion can be seen. Mediastinum: Mediastinal contours appear normal. Heart size is normal. Bones and chest wall: No suspicious bony lesions. Overlying soft tissues appear unremarkable. IMPRESSION: Low lung volumes, without an acute cardiopulmonary abnormality seen. Reviewed by: Joey Mann MD on 04/05/2023 2:15 PM [facility] Approved by: Joey Mann MD on 04/05/2023 2:15 PM [facility] Station ID: [id number]
[2023-04-05 15:25] LABS: TROPONIN I HIGH SENSITIVITY 5.8 ng/L (2.3-19.7)
--- NOTE | 2023-04-05 17:44 | ED Physician Documentation ---
History of Present Illness - Stated complaint Stated Complaint: HR RACING/SOA - Chief complaint Chief Complaint: Cardiac - History obtained from History obtained from: Patient - Treatment prior to arrival Treatment prior to arrival: 42-year-old male with no significant past medical history aside from obesity who presents the emergency department today for what he complains as heart palpitations and is upper chest/neck. Patient reports he sees his primary care provider yearly. Yesterday he started to notice what describes as heart palpitations but more so in his upper chest/neck region, he does not notice anything that exacerbates them or relieves the palpitations, says the come on randomly with no consistency. He says it last for about 1 minute long with some mild dizziness self resolves and then he feels fatigued afterward. He denies any history of hypothyroid he did state that he had to have a biopsy of his thyroid last year but everything came back benign. He has had no new medication changes no new supplement changes denies any illicit drug use or alcohol use. PD PAST MEDICAL HISTORY - Past Medical History Past Medical History: Yes Cardiovascular: None Respiratory: None Neuro: Cerebral palsy Endocrine/Autoimmune: None GI: None, Other : Kidney stones HEENT: None Psych: Post traumatic stress disorder Musculoskeletal: None Derm: None - Past Surgical History Past Surgical History: No - Present Medications Home Medications: Ambulatory Orders Medication Instructions Recorded Confirmed Albuterol Sulf [Ventolin Hfa 1 - 2 puffs INH Q4HR PRN #1 each 02/27/22 03/22/22 Inhaler] Doxycycline Hyclate 100 mg PO BID #14 cap 02/27/23 - Allergies Allergies/Adverse Reactions: Allergies Allergy/AdvReac Type Severity Reaction Status Date / Time Penicillins Allergy Anaphylaxis Verified 04/05/23 14:32 potassium chloride AdvReac Severe Rash Verified 04/05/23 14:32 - Social History Does the pt smoke?: No Smoking Status: Never smoker Does the pt drink ETOH?: No Does the pt have substance abuse?: No - Immunizations Immunizations are current?: Yes - POLST Patient has POLST: No PD ED PE NORMAL - Vitals Vital signs reviewed: Yes - General General: Alert and oriented X 3, Other (obese) - HEENT HEENT: Atraumatic - Neck Neck: No bruit - Cardiac Cardiac: RRR, No murmur, No gallop, Strong equal pulses - Respiratory Respiratory: No respiratory distress, Clear bilaterally - Abdomen Abdomen: Normal bowel sounds, Non tender - Neuro Neuro: Alert and oriented X 3 - Psych Psych: Normal mood Results - Vitals Vitals: Vital Signs - 24 hr 04/05/23 04/05/23 14:24 18:25 Temperature 36.1 C L Heart Rate 93 60 Respiratory 18 21 Rate Blood Pressure 145/93 H 140/97 H O2 Saturation 99 96 Oxygen O2 Source Room air - EKG (time done) 1426 EKG releavant findings:: EKG personally interpreted by author of this note. Relevant findings are: Rate: Rate (enter#) (88) Rhythm: NSR [place]: LAD Intervals: Normal CO, QRS normal QRS: Poor R wave progression Ischemia: Normal ST segments Computer interpretation: Agree with computer - Labs Labs: Laboratory Tests 04/05/23 04/05/23 04/05/23 14:11 14:50 14:50 WBC 10.3 RBC 6.04 Hgb 16.9 Hct 52.8 H MCV 87.4 MCH 28.0 MCHC 32.0 RDW 13.6 Plt Count 298 MPV 10.1 Neut # (Auto) 5.9 Lymph # (Auto) 2.9 Wood # (Auto) 1.0 Eos # (Auto) 0.3 Baso # (Auto) 0.1 Absolute Nucleated RBC 0.00 Nucleated RBC % 0.0 Sodium 136 Potassium 3.7 Chloride 101 Carbon Dioxide 26 Anion Gap 9.0 BUN 12 Creatinine 0.8 Estimated GFR (MDRD) 107 Glucose 166 H Calcium 9.5 Magnesium 1.7 Total Bilirubin 0.6 AST 22 ALT 38 Alkaline Phosphatase 60 Troponin I High Sens 5.8 B-Natriuretic Peptide Total Protein 7.3 Albumin 4.1 Globulin 3.2 Albumin/Globulin Ratio 1.3 Lipase 18 TSH 0.98 04/05/23 14:50 WBC RBC Hgb Hct MCV MCH MCHC RDW Plt Count MPV Neut # (Auto) Lymph # (Auto) Wood # (Auto) Eos # (Auto) Baso # (Auto) Absolute Nucleated RBC Nucleated RBC % Sodium Potassium Chloride Carbon Dioxide Anion Gap BUN Creatinine Estimated GFR (MDRD) Glucose Calcium Magnesium Total Bilirubin AST ALT Alkaline Phosphatase Troponin I High Sens B-Natriuretic Peptide 15 Total Protein Albumin Globulin Albumin/Globulin Ratio Lipase TSH - Rads (name of study) chest xray Relevant Findings:: Final report received ( low lung volumes most likely related to his morbid obesity no acute cardiopulmonary abnormalities.), EMP independent interpretation of test PD Medical Decision Making - ED course ED course: Differentials include electrolyte abnormality, anxiety, hypothyroid, hyperthyroid, arrhythmia, A-fib Labs reflected in the emergency department chemistry is overall unremarkable glucose is 166 no electrolyte abnormalities, CBC also collected no anemia or leukocytosis TSH within normal limits. Chest x-ray was also completed in the emergency department it shows low lung volumes most likely related to his morbid obesity no acute cardiopulmonary abnormalities. ECG reveals normal sinus rhythm, heart rate 88, left axis deviation, QTc 450, no ST elevation no T wave inversions. Patient was monitored on telemetry in the emergency department when he started to experience what he describes him as a heart palpitations and fluttering there is no obvious significant ECG changes. There are some possible PVCs but nothing significant. Patient does have close contact with his primary care provider. I do not hear any heart murmurs. Patient is safe for discharge he was given strict return precautions when to return back to the emergency department told to follow-up with his primary care provider about his emergency department visit and further investigation to what patient describes as his heart fluttering and a possible at home heart monitor. He understands the return precautions and is safe for discharge at this time. Departure - Departure Disposition: 01 Home, Self Care Clinical Impression: Heart palpitations Instructions: Heart Palpitations Comments: Thank you for trusting us with your care we have completed labs as well as an ECG with a chest x-ray and none of them are showing any abnormal results that could be contributing to the heart racing and palpitations that you are experiencing. Please come back to the emergency department if you are starting to experience this getting more severe, chest pain, shortness of breath, worsening dizziness, or any other concerning symptoms. Please follow-up with your primary care provider for further evaluation of this to see if she would like to consider doing a heart monitor at home. Forms: PCP List Discharge Date/Time: 04/05/23 18:25
[2023-04-05 18:33] VITALS: BP 140/97; O2SAT 96
== END 2023-04-05 18:25 | disposition home or self-care (01) ==
LOC: ED 14:11
DX: R00.2 Palpitations (principal); E66.01 Morbid (severe) obesity due to excess calories; Z68.41 Body mass index [BMI] 40.0-44.9, adult
CPT/HCPCS: 36415; 80053; 83690; 83735; 83880; 84443; 84484; 85025; 93005; 99283; 99284

== ENCOUNTER 2023-12-10 13:41 | Emergency (ER) | payer MEDICAID ==
[2023-12-10 13:56] VITALS: BP 151/97; O2SAT 94
--- NOTE | 2023-12-10 14:36 | ED Physician Documentation ---
History of Present Illness - Stated complaint Stated Complaint: RT FOOT SWELLING,DIZZINESS,NAUSEA - Chief complaint Chief Complaint: Ext Problem - Additonal information Additional information: 43-year-old male with history of cerebral palsy causing right sided weakness and saying that the right side of his body is more than the left side disorder presents emergency department for right lower extremity swelling and pain. Patient says that he took a nap and he woke up with severe calf pain and right lower extremity swelling. He has not changed any medications recently no history of blood clots he denies any history of type 2 diabetes. Patient denies any shortness of breath or chest pain no recent long traveling. He is not on any hormonal supplements. No history of cancer. PD PAST MEDICAL HISTORY - Past Medical History Past Medical History: Yes Cardiovascular: None Respiratory: None Neuro: Cerebral palsy Endocrine/Autoimmune: None GI: Other : Kidney stones HEENT: None Psych: Post traumatic stress disorder Musculoskeletal: None Derm: None - Past Surgical History Past Surgical History: No - Present Medications Home Medications: Ambulatory Orders Medication Instructions Recorded Confirmed No Known Home Medications 12/10/23 12/10/23 - Allergies Allergies/Adverse Reactions: Allergies Allergy/AdvReac Type Severity Reaction Status Date / Time Penicillins Allergy Anaphylaxis Verified 12/10/23 13:50 potassium chloride AdvReac Severe Rash Verified 12/10/23 13:50 - Social History Does the pt smoke?: No Smoking Status: Never smoker Does the pt drink ETOH?: No Does the pt have substance abuse?: No - Immunizations Immunizations are current?: Yes - POLST Patient has POLST: No PD ED PE NORMAL - Vitals Vital signs reviewed: Yes - General General: Alert and oriented X 3, No acute distress, Other (Morbidly obese) - Derm Derm: Normal color, Warm and dry, No rash - Extremities Extremities: Other (Right lower extremity 3+ pitting edema.) - Neuro Neuro: Alert and oriented X 3 - Psych Psych: Normal mood, Normal affect Results - Vitals Vitals: Vital Signs - 24 hr 12/10/23 13:50 Temperature 36.7 C Heart Rate 103 H Respiratory 20 Rate Blood Pressure 151/97 H O2 Saturation 94 Oxygen O2 Source Room air - Rads (name of study) Right lower extremity venous duplex Relevant Findings:: Final report received, EMP independent interpretation of test, Other (No DVT of the right lower extremity.) PD Medical Decision Making - ED course ED course: 43-year-old male presents emergency department for right lower extremity swelling and 3+ pitting edema he does appear to have bilateral pitting edema but there is more fluid collection specifically surrounding the right ankle. He has no chest pain or shortness of breath we went ahead and did venous duplex for further evaluation to rule out the possibility of DVT which came back negative. He had no erythema at that right leg becoming less concerned or suspicious for cellulitis. Patient is morbidly obese and it was suggested that he work on weight loss and follow-up with primary care provider for further outpatient workup as I do not believe there is any emergent findings at this point in time. Strict ER return precautions given and patient is safe for discharge at this time. Departure - Departure Disposition: 01 Home, Self Care Clinical Impression: Right leg swelling Instructions: ED Leg Swelling Unilateral Comments: They have a trusting us with your care. We have evaluated the right lower extremity for a possible blood clot and we are not finding any blood clots or other emergent findings at this point in time. Please help with your primary care provider about today's ER visit I would consider wearing BRAD hose also known as compression stockings for the next couple days to see if this helps with the swelling avoid a high salt diet and keep your right lower extremity elevated above your heart anytime you are at rest or sleeping. Please come back to the ER if you are having any worsening pain, shortness of breath, chest pain, or any other concerning symptoms. Forms: PCP List Discharge Date/Time: 12/10/23 16:52
--- NOTE | 2023-12-10 16:04 | Ultrasound Report ---
PROCEDURE: Duplex Ext Veins Right INDICATIONS: RLE venous duplex, RLE swelling, calf pain TECHNIQUE: Real-time imaging, as well as color and pulse Doppler interrogation, were performed of the lower extr emity deep veins from the inguinal ligament to the popliteal fossa. Attempted visualization of the ca lf veins was performed. COMPARISON: None. FINDINGS: The deep veins are normally compressible, and free of intraluminal thrombus. Color and pu lse Doppler demonstrate normal phasic intraluminal flow. There is normal augmentation response to di stal compression maneuver. IMPRESSION: No deep venous thrombosis of the right lower extremity. Reviewed by: Amandeep Arechiga MD on 12/10/2023 4:02 PM PDT Approved by: Amandeep Arechiga MD on 12/10/2023 4:02 PM PDT Station ID: [id number]
== END 2023-12-10 16:52 | disposition home or self-care (01) ==
LOC: ED 13:41
DX: R60.0 Localized edema (principal); M79.661 Pain in right lower leg; G80.9 Cerebral palsy, unspecified
CPT/HCPCS: 99283; 99284